=== PATIENT | female | born 1930 | race Hispanic/Latino ===

== ENCOUNTER 2018-01-22 16:48 | Inpatient (IN) | payer MEDICARE ==
--- NOTE | 2018-01-22 17:28 | ED PDOC ---
Arrival/HPI - General Chief Complaint: Shortness Of Breath Time Seen by Provider: 01/22/18 17:02 Historian: Patient - Critical Care Critical Care Minutes: 45 minutes Narrative Critical Care (Text): 01/22/18 17:05 Patient was immediately seen by PA at the bedside. Patient's HR was fluctuating in the 140s-170s, O2 sat fluctuating in 80s to low 90s on O2. Patient very agitated and uncooperative. Given ativan 1 mg IV immediately. Rectal temp 99.5. ER MD notified immediately of the case and patient was seen by ER MD. - History of Present Illness Narrative History of Present Illness (Text): 01/22/18 17:24 87 year old female, with a history of hypertension, dementia, TIA, gastric polyps, and hiatal hernia, presents to the emergency department for SOB and cough which started today. History is mostly obtained form the patient's daughter, who states that the patient lives alone with a naphthol soaping machine operator 30/10, she is mostly bed bound. States that yesterday the patient was well and symptoms started abruptly today. She also had an episode of vomiting with cough. Otherwise, as per daughter the patient has had decrease in appetite, has been without fever, diarrhea. She adds that the patient get easily agitated due to dementia. Unable to obtain further history as the patient has late stage dementia. PMD Pervemaxim Past Medical History - Infectious Disease Hx of Infectious Diseases: None - Tetanus Immunization Tetanus Immunization: Unknown - Cardiac Hx Cardiac Disorders: No Hx Hypertension: Yes Hx Pacemaker: No - Pulmonary Hx Respiratory Disorders: No - Neurological Hx Neurological Disorder: Yes Hx Dementia: Yes Hx Dizziness: Yes Hx Transient Ischemic Attacks (TIA): Yes (08-05-13) - HEENT Hx HEENT Disorder: No - Renal Hx Renal Disorder: No - Endocrine/Metabolic Hx Endocrine Disorders: No - Hematological/Oncological Hx Blood Disorders: No - Integumentary Hx Dermatological Disorder: No - Musculoskeletal/Rheumatological Hx Musculoskeletal Disorders: No Hx Falls: Yes Hx Unsteady Gait: Yes - Gastrointestinal Hx Gastrointestinal Disorders: Yes (GASTRIC POLYPS,HIATAL HERNIA,HEMORRHOIDS) HX Swallowing Problems: Yes (08-05-13) - Genitourinary/Gynecological Hx Genitourinary Disorders: Yes (URGENCY) - Psychiatric Hx Psychophysiologic Disorder: No Hx Depression: No Hx Emotional Abuse: No Hx Physical Abuse: No Hx Substance Use: No - Past Surgical History Past Surgical History: No Previous - Anesthesia Hx Anesthesia: Yes Hx Anesthesia Reactions: No Hx Malignant Hyperthermia: No - Suicidal Assessment Feels Threatened In Home Enviroment: No Family/Social History Family/Social History: Unknown Family HX Smoking Status: Never Smoked Hx Alcohol Use: Yes (OCCASSIONAL) Hx Substance Use: No Allergies/Home Meds Allergies/Adverse Reactions: Allergies No Known Allergies Allergy (Verified 06/13/16 02:35) Home Medications: Home Meds Medication Instructions Recorded Confirmed Pantoprazole [Protonix EC Tab] 1 tab PO DAILY 04/22/13 08/05/13 Megestrol [Megace] 40 mg PO BID 08/05/13 08/05/13 Vitamin D 50,000 50,000 iu PO TUE 08/05/13 08/05/13 Aspirin [Ecotrin] 06/13/16 06/13/16 Review of Systems - Review of Systems Systems not reviewed;Unavailable: Dementia Constitutional: absent: Fevers Respiratory: Cough Gastrointestinal: Vomiting. absent: Diarrhea Skin: absent: Rash, Skin Lesions Physical Exam Pulse: Tachycardic Appearance: Positive for: Other (pt is awake, not alert or oriented is agitated ) - Systems Exam Head: Present: Atraumatic, Normocephalic Pupils: Present: PERRL Extroacular Muscles: Present: EOMI Conjunctiva: Present: Normal Mouth: Present: Moist Mucous Membranes Neck: Present: Normal Range of Motion Respiratory/Chest: Present: Clear to Auscultation, Good Air Exchange, Rales (all throughout). No: Respiratory Distress, Accessory Muscle Use, Wheezes Cardiovascular: Present: Normal S1, S2, Irregular Rhythm, Tachycardic Abdomen: No: Tenderness, Distention, Peritoneal Signs Back: Present: Normal Inspection Upper Extremity: Present: Normal Inspection. No: Cyanosis, Edema Lower Extremity: Present: Normal Inspection. No: Edema Neurological: Present: GCS=15, CN II-XII Intact Skin: Present: Warm, Dry, Normal Color. No: Rashes Psychiatric: Present: Agitated Medical Decision Making ED Course and Treatment: 01/22/18 17:30 Previous medical records reviewed, patient's last visit was for stroke like symptoms in 06/2016, was Dx with TIA. 87 year old female, with a history of hypertension, dementia, TIA, gastric polyps, hiatal hernia, presents to the emergency department for cough and SOB x 1 day. DDx : CHF vs pneumonia Plan : - EKG - CXR - IV - Labs - Lasix 40 mg IV - Duoneb - VBG - UA - O2 - ativan 1 mg IV Case d/w ER MD immediately and he saw and examined the patient. EKG : ST at 148 bpm, w/ PVCs. CXR : +vascular markings, +infiltrates in the RLL, possible RML. Labs reviewed : wbc 10, hgb 11.9, trop (-), bnp 378, vbg ph 7.16, lactate 8, ua (-) Code sepsis called. Rocephin 1 g IV and zithromax 500 mg IV ordered. ABG ordered. ABG : ph 7.39, lactate 5.6 Patient still tachycardic in the 130s, less agitated, pulse ox still in 80s, respiratory called and bipap ordered. 19:00 Case d/w ICU attending Dr. Henry and agree with plan to admit and for the patient to stay in ICU for now until there is clinical improvement and the patient can downgrade to [facility]. Case d/w Dr. Martinez, agrees with plan to admit to the ICU. While on bipap the patient's HR improved to the 110s-120s and pulse ox is now 100%. Patient is calm and sleeping comfortably in bed. As per patient's daughter, she agrees with plan for admission to the ICU and states that she is the power of assistant prosecuting attorney and wishes for her mother to be DNR but not DNI. She states that she had this discussion with the ICU attending Dr. Henry and he is aware. - RAD Interpretation Radiology Orders: 01/22/18 17:18 CHEST PORTABLE [RAD] Stat - Medication Orders Current Medication Orders: Discontinued Medications Furosemide (Lasix) 40 mg IVP STAT STA Stop: 01/22/18 17:19 Lorazepam (Ativan) 1 mg IVP ONCE ONE; Protocol Stop: 01/22/18 17:22 - PA / RETAIL SERVICE REPRESENTATIVE / Resident Statement MD/DO has reviewed & agrees with the documentation as recorded. Disposition/Present on Arrival - Present on Arrival Any Indicators Present on Arrival: No History of DVT/PE: No History of Uncontrolled Diabetes: No Urinary Catheter: No History of Decub. Ulcer: No History Surgical Site Infection Following: None - Disposition Have Diagnosis and Disposition been Completed?: Yes Diagnosis: Pneumonia, Hypoxia Disposition: HOSPITALIZED Disposition Time: 18:00 Patient Plan: Admission Patient Problems: Current Active Problems Problem Status Onset Pneumonia Acute Hypoxia Acute Condition: FAIR
[2018-01-22 17:50] LABS: VENOUS BLOOD GAS BASE EXCESS -7.5 mmol/L (0.0-2.0); VENOUS BLOOD GAS PO2 34 mm/Hg (30-55)
[2018-01-22 17:54] LABS: VENOUS BLOOD PH 7.16 (7.32-7.43)
[2018-01-22 17:57] LABS: ALBUMIN 3.9 g/dL (3.0-4.8); ALT/SGPT 25 U/L (7-56); AST/SGOT 31 U/L (14-36); BLOOD UREA NITROGEN 17 mg/dL (7-21); CALCIUM 9.4 mg/dL (8.4-10.5); GFR NON-AFRICAN AMERICAN 52; INR 1.12; PARTIAL THROMBOPLASTIN TIME 30.5 Seconds (25.1-36.5); PROTHROMBIN TIME 12.8 SECONDS (9.4-12.5)
[2018-01-22 17:58] LABS: BASO # 0.02 K/mm3 (0.0-2.0); BASO % 0.2 % (0.0-3.0); GRAN # 8.59 (1.4-6.5); GRAN % 80.4 % (50.0-68.0); HEMOGLOBIN 11.9 g/dL (12.0-16.0); LYMPH # 1.7 (1.2-3.4); LYMPH % 15.7 % (22.0-35.0); MEAN CELL VOLUME 65.4 fl (80.0-105.0); MEAN CORPUSCULAR HEMOGLOBIN 20.5 pg (25.0-35.0); MEAN CORPUSCULAR HGB CONC 31.3 g/dl (31.0-37.0); MONO # 0.4 (0.1-0.6); MONO % 3.7 % (1.0-6.0); RBC 5.81 10^6/uL (3.5-6.1); RED CELL DISTRIBUTION WIDTH 16.9 % (11.5-14.5); WHITE BLOOD COUNT 10.7 10^3/ul (4.5-11.0)
[2018-01-22] MEDS ORDERED: cefTRIAXone 1 gm 1 GM/100 ML BAG IVPB STA (18:07)
[2018-01-22] MEDS ORDERED: Azithromycin 500MG/NS 250ml 500 MG/250 ML BAG IVPB STA (18:07)
[2018-01-22 18:09] LABS: B-TYPE NATRIURETIC PEPTIDE 378 pg/mL (0-450); TROPONIN I < 0.01 ng/mL
--- NOTE | 2018-01-22 18:15 | RAD ---
Date of service: 01/22/2018 HISTORY: Shortness of breath. COMPARISON: 06/13/2016 FINDINGS: LUNGS: Asymmetric multifocal and bilateral infiltrates right greater than left. PLEURA: No significant pleural effusion identified, no pneumothorax apparent. CARDIOVASCULAR: Normal size heart. OSSEOUS STRUCTURES: No significant abnormalities. VISUALIZED UPPER ABDOMEN: Normal. OTHER FINDINGS: None. IMPRESSION: Extensive infiltrates right greater than left. In addition to possible pneumonia, pulmonary edema should be considered. These are new findings compared to prior study
[2018-01-22 18:34] LABS: URINE BILIRUBIN NEGATIVE (NEGATIVE); URINE BLOOD NEGATIVE (NEGATIVE); URINE GLUCOSE (UA) NEGATIVE (NEGATIVE); URINE LEUKOCYTE ESTERASE NEGATIVE Leu/uL (NEGATIVE); URINE PROTEIN TRACE mg/dL (<30 mg/dL); URINE UROBILINOGEN 0.2 E.U./dL (<1 E.U./dL)
[2018-01-22 18:37] LABS: URINE APPEARANCE CLEAR (CLEAR); URINE COLOR YELLOW (YELLOW)
[2018-01-22 18:46] LABS: URINE EPITHELIAL CELLS 0 - 2 /hpf (0-5); URINE RBC NEGATIVE /hpf (0-2); URINE WBC NEGATIVE /hpf (0-6)
[2018-01-22 19:04] VITALS: BMI 22.8
[2018-01-22] MEDS ORDERED: Albuterol-Ipratrop 3 mg / 0.5 (3 ml) UD IH STA (19:05)
[2018-01-22 19:17] LABS: ARTERIAL BLOOD GAS HCO3 18.2 mmol/L (21-28); ARTERIAL BLOOD GAS O2 SAT 100.2 % (95-98); ARTERIAL BLOOD GAS PCO2 30 mm/Hg (35-45); ARTERIAL BLOOD GAS PH 7.39 (7.35-7.45); ARTERIAL BLOOD GAS TCO2 19.1 mmol.L (22-28)
[2018-01-22] MEDS ORDERED: Albuterol-Ipratrop 3 mg / 0.5 (3 ml) UD IH PRN (19:33)
[2018-01-22] MEDS ORDERED: Dextrose 5%/0.45% NS 1,000 ML IV SCH (19:45)
[2018-01-22] MEDS: Levalbuterol 1.25 MG/3 ML Inhal Soln UD IH SCH (20:00)
--- NOTE | 2018-01-22 20:25 | CP.PCM.CON ---
<aYhir Balbuena - Last Filed: 01/22/18 20:49> History of Present Illness - History of Present Illness History of Present Illness: PGY-2 ICU consult note for Dr Carl mcgraw: patient noted to have sob/cough by health aid Mrs Keenan is a 87 year old bed bound female with a PMHx of severe dementia, HLD, HTN, chronic vertigo, hx of CVA in 2013, hiatal hernia, gastric polyps, who according to special agent secret service and daughter was found to have increasing shortness of breath and cough which started 1 day ago. Patient lives alone with a 24/7 special agent secret service. Per daughter, patient was at her baseline 2 days ago and 1 day ago seemed "a bit off". Today the patient began having coughing spells and became short of breath. Her temperature was not checked at home. The daughter decided to bring the patient to the ER. PMHx: severe dementia, HLD, HTN, chronic vertigo, hx of TIA in 2013, hiatal hernia, gastric polyps PSHx: upper and lower endoscopy 2013 Allergies: NKA Home Meds: protonix 40mg po qd, atorvastatin 10mg po qd, risperidone 0.25mg po qd, quetiapine 50mg po qd SocialHx: no tobacco hx, previous occasional alcohol use, no hx of illicit drug use, lives alone with 24/7 special agent secret service FamHx: unknown Review of Systems - Review of Systems Systems not reviewed;Unavailable: Respiratory Distress, Dementia, Altered Mental Status Past Patient History - Infectious Disease Hx of Infectious Diseases: None - Tetanus Immunizations Tetanus Immunization: Unknown - Past Social History Smoking Status: Never Smoked - CARDIAC Hx Cardiac Disorders: No Hx Hypertension: Yes Hx Pacemaker: No - PULMONARY Hx Respiratory Disorders: No - NEUROLOGICAL Hx Neurological Disorder: Yes Hx Dementia: Yes Hx Dizziness: Yes Hx Transient Ischemic Attacks (TIA): Yes (08-05-13) - HEENT Hx HEENT Problems: No - RENAL Hx Chronic Kidney Disease: No - ENDOCRINE/METABOLIC Hx Endocrine Disorders: No - HEMATOLOGICAL/ONCOLOGICAL Hx Blood Disorders: No - INTEGUMENTARY Hx Dermatological Problems: No - MUSCULOSKELETAL/RHEUMATOLOGICAL Hx Musculoskeletal Disorders: No Hx Falls: Yes Hx Unsteady Gait: Yes - GASTROINTESTINAL Hx Gastrointestinal Disorders: Yes (GASTRIC POLYPS,HIATAL HERNIA,HEMORRHOIDS) HX Swallowing Problems: Yes (08-05-13) - GENITOURINARY/GYNECOLOGICAL Hx Genitourinary Disorders: Yes (URGENCY) - PSYCHIATRIC Hx Psychophysiologic Disorder: No Hx Depression: No Hx Emotional Abuse: No Hx Physical Abuse: No Hx Substance Use: No - SURGICAL HISTORY Hx Surgeries: No - ANESTHESIA Hx Anesthesia: Yes Hx Anesthesia Reactions: No Hx Malignant Hyperthermia: No Meds Allergies/Adverse Reactions: Allergies Allergy/AdvReac Type Severity Reaction Status Date / Time No Known Allergies Allergy Verified 06/13/16 02:35 - Medications Medications: Current Medications Albuterol/Ipratropium (Duoneb 3 Mg/0.5 Mg (3 Ml) Ud) 3 ml IH Q2H PRN PRN Reason: Shortness of Breath Furosemide (Lasix) 40 mg IVP DAILY [facility] Heparin Sodium (Porcine) (Heparin) 5,000 units SC Q8 JORJE; Protocol Dextrose/Sodium Chloride (Dextrose 5%/0.45% Ns 1000 Ml) 1,000 mls @ 50 mls/hr IV .Q20H JORJE Vancomycin HCl (Vancomycin 1gm) 1 gm in 250 mls @ 167 mls/hr IVPB Q12 JORJE; Protocol Cefepime HCl (Maxipime 1gm) 1 gm in 100 mls @ 25 mls/hr IVPB Q12 JOR[facility]; Protocol Ipratropium Devine (Atrovent) 0.5 mg IH [id number] JORJE Levalbuterol HCl (Xopenex) 1.25 mg IH [id number] JORJE Lorazepam (Ativan) 0.5 mg IVP STAT STA; Protocol Stop: 01/22/18 20:13 Methylprednisolone (Solu-Medrol) 40 mg IV Q12 JORJE Pantoprazole Sodium (Protonix Inj) 40 mg IVP DAILY [facility] Physical Exam - Constitutional Appears: In Acute Distress - Head Exam Head Exam: ATRAUMATIC, NORMAL INSPECTION - Eye Exam Eye Exam: PERRL. absent: Scleral icterus - ENT Exam ENT Exam: Mucous Membranes Dry - Neck Exam Neck exam: Positive for: Normal Inspection - Respiratory Exam Respiratory Exam: Clear to Auscultation Bilateral, Respiratory Distress. ab sent: Rales, Rhonchi, Wheezes - Cardiovascular Exam Cardiovascular Exam: Tachycardia, REGULAR RHYTHM, +S1, +S2, Systolic Murmur. absent: JVD - GI/Abdominal Exam GI & Abdominal Exam: Normal Bowel Sounds, Soft. absent: Distended, Firm, Hernia, Tenderness - Extremities Exam Extremities exam: Positive for: normal capillary refill, normal inspection, pedal pulses present. Negative for: pedal edema - Neurological Exam Neurological exam: Altered Additional comments: severely demented patient unable to follow commands, responsive to painful stimuli - Skin Skin Exam: Dry, Normal Color, Warm Additional comments: no pressure ulcers noted in lumbar, posterior legs or gluteal region Results - Vital Signs Recent Vital Signs: Last Vital Signs Temp 99.5 F 01/22/18 16:50 Pulse 135 H 01/22/18 18:41 Resp 17 01/22/18 18:40 BP 113/63 01/22/18 18:41 Pulse Ox 92 L 01/22/18 18:40 - Labs Result Diagrams: 01/22/18 16:18 01/22/18 16:18 Labs: Laboratory Results - last 24 hr 01/22/18 01/22/18 01/22/18 16:18 16:18 16:18 WBC 10.7 D RBC 5.81 Hgb 11.9 L Hct 38.0 MCV 65.4 L MCH 20.5 L MCHC 31.3 RDW 16.9 H Plt Count 353 MPV 10.0 Gran % 80.4 H Lymph % (Auto) 15.7 L Reynolds % (Auto) 3.7 Eos % (Auto) 0.0 L Baso % (Auto) 0.2 Gran # 8.59 H Lymph # (Auto) 1.7 Reynolds # (Auto) 0.4 Eos # (Auto) 0.0 Baso # (Auto) 0.02 PT 12.8 H INR 1.12 APTT 30.5 pCO2 pO2 34 HCO3 ABG pH ABG Total CO2 ABG O2 Saturation ABG Base Excess ABG Potassium VBG pH 7.16 L* VBG pCO2 62.0 H VBG HCO3 22.1 VBG Total CO2 24.0 VBG O2 Sat (Calc) 50.8 VBG Base Excess -7.5 L VBG Potassium 4.1 Sodium 141.0 Chloride 103.0 Glucose 236 H Lactate 8.0 H* FiO2 21.0 Inspiratory BiPAP Potassium Carbon Dioxide Anion Gap BUN Creatinine Est GFR ( Amer) Est GFR (Non-Af Amer) Random Glucose Calcium Magnesium Total Bilirubin AST ALT Alkaline Phosphatase Lactate Dehydrogenase Total Creatine Kinase Troponin I NT-Pro-B Natriuret Pep Total Protein Albumin Globulin Albumin/Globulin Ratio Arterial Blood Potassium Venous Blood Potassium 4.1 Urine Color Urine Appearance Urine pH Ur Specific [place] Urine Protein Urine Glucose (UA) Urine Ketones Urine Blood Urine Nitrate Urine Bilirubin Urine Urobilinogen Ur Leukocyte Esterase Urine RBC Urine WBC Ur Epithelial Cells 01/22/18 01/22/18 01/22/18 16:18 18:21 19:12 WBC RBC Hgb Hct MCV MCH MCHC RDW Plt Count MPV Gran % Lymph % (Auto) Reynolds % (Auto) Eos % (Auto) Baso % (Auto) Gran # Lymph # (Auto) Reynolds # (Auto) Eos # (Auto) Baso # (Auto) PT INR APTT pCO2 30 L pO2 329.0 H HCO3 18.2 L ABG pH 7.39 ABG Total CO2 19.1 L ABG O2 Saturation 100.2 H ABG Base Excess -5.6 L ABG Potassium 3.7 VBG pH VBG pCO2 VBG HCO3 VBG Total CO2 VBG O2 Sat (Calc) VBG Base Excess VBG Potassium Sodium 140 139.0 Chloride 103 108.0 H Glucose 179 H Lactate 5.6 H* FiO2 100.0 Inspiratory BiPAP 12 Potassium 4.0 Carbon Dioxide 19 L Anion Gap 22 H BUN 17 Creatinine 1.0 Est GFR ( Amer) > 60 Est GFR (Non-Af Amer) 52 Random Glucose 221 H Calcium 9.4 Magnesium 1.6 L Total Bilirubin 0.6 AST 31 ALT 25 Alkaline Phosphatase 117 Lactate Dehydrogenase 397 Total Creatine Kinase 30 L Troponin I < 0.01 NT-Pro-B Natriuret Pep 378 Total Protein 7.8 Albumin 3.9 Globulin 3.8 Albumin/Globulin Ratio 1.0 L Arterial Blood Potassium 3.7 Venous Blood Potassium Urine Color Yellow Urine Appearance Clear Urine pH 6.0 Ur Specific [place] 1.025 Urine Protein Trace H Urine Glucose (UA) Negative Urine Ketones Negative Urine Blood Negative Urine Nitrate Negative Urine Bilirubin Negative Urine Urobilinogen 0.2 Ur Leukocyte Esterase Negative Urine RBC Negative Urine WBC Negative Ur Epithelial Cells 0 - 2 Assessment & Plan - Assessment and Plan (Free Text) Plan: Mrs Keenan is a 87 year old bed bound female with a PMHx of severe dementia, HLD, HTN, chronic vertigo, hx of CVA in 2013, hiatal hernia, gastric polyps, who according to special agent secret service and daughter was found to have increasing shortness of breath and cough which started 1 day prior to arrival: Pulmonary: Acute Respiratory Acidosis 2/2 Pneumonia -cxr shows extensive infiltrates right greater than left, in addition to possible pneumonia, pulmonary edema should be considered -currently on bipap at 100% fiO2 with PEEP of 12 - continue bipap for now - saturating well at 92% -initial abd showed acute respiratory acidosis, repeat abg shows normal pH, f/u abd in am -patient is protecting airway -f/u d-dimer -f/u blood cx, urine cx -cefepime 1g ivpb q12h, vancomycin 1g ivpb q12h -ipratropium 0.5mg ih q6h, levalbuterol 1.25mg ih q6h -methyprednisolone 40mg ivp q12h -furosemide 40mg ivp qd -consult ID, Dr Masters Cardiovascular: Sinus tachycardia, hx of right carotid stenosis 60-80%, HTN, HLD, prolonged Qt at 550 -probnp normal, trop negative -ekg showed t wave inversion in inferior leads and prolonged qt at 550 other sinus tach at 130 beats per minute -try ativan 0.5mg ivp once to control tachycardia - if still tachy will start metoprolol tartrate 5mg ivp q6h with holding parameters -repeat ekg in am -echo -hold qt prolonging drugs Neuro: hx of remote right MCA territory infarction, severe dementia, bed bound -npo except meds until swallow eval * d5 in half NS given she is npo at 50cc/hr -reposition every 2 hours -multipodus boots Endocrine: elevated glucose - previous A1c 6.7 -f/u A1c -accuchecks q6h with riss Hematology: anemia -hgb 11.9 on admission which is stable from previous admission -f/u iron studies GI: Hx of hiatal hernia and gastric polyps -protonix 40mg ivp qd PPX -heparin 5000u sc q8h -protonix 40mg ivp qd Code Status: DNR only as per daughter who is POA <Trish Henry - Last Filed: 01/23/18 06:40> Meds - Medications Medications: Current Medications Dextrose (Dextrose 50% Inj) 0 ml IV STAT PRN; Protocol PRN Reason: Hypoglycemia Protocol Furosemide (Lasix) 40 mg IVP DAILY [facility]OR[facility] Heparin Sodium (Porcine) (Heparin) 5,000 units SC Q8 JORJE; Protocol Last Admin: 01/23/18 00:09 Dose: 5,000 units Vancomycin HCl (Vancomycin 1gm) 1 gm in 250 mls @ 167 mls/hr IVPB Q12 JORJE; Protocol Last Admin: 01/23/18 00:10 Dose: 167 mls/hr Cefepime HCl (Maxipime 1gm) 1 gm in 100 mls @ 25 mls/hr IVPB Q12 JORJE; Protocol Last Admin: 01/23/18 00:09 Dose: 25 mls/hr Dextrose (Dextrose 5% In Water 1000 Ml) 1,000 mls @ 0 mls/hr IV .Q0M PRN; Protocol PRN Reason: Hypoglycemia Protocol Dextrose/Sodium Chloride (Dextrose 5%/0.9% Ns 1000 Ml) 1,000 mls @ 50 mls/hr IV .Q20H JORJE Last Admin: 01/23/18 01:09 Dose: 50 mls/hr Insulin Human Lispro (Humalog Med) 0 units SC Q6H JORJE; Protocol Last Admin: 01/23/18 02:00 Dose: Not Given Ipratropium Devine (Atrovent) 0.5 mg IH [id number] [facility] Last Admin: 01/23/18 02:27 Dose: 0.5 mg Levalbuterol HCl (Xopenex) 1.25 mg IH [id number] [facility] Last Admin: 01/23/18 02:28 Dose: 1.25 mg Methylprednisolone (Solu-Medrol) 40 mg IV Q12 [facility] Last Admin: 01/23/18 00:09 Dose: 40 mg Pantoprazole Sodium (Protonix Inj) 40 mg IVP DAILY [facility] Results - Vital Signs Recent Vital Signs: Last Vital Signs Temp 99.6 F 01/23/18 00:02 Pulse 86 01/23/18 04:58 Resp 25 H 01/23/18 01:54 BP 102/65 01/23/18 01:54 Pulse Ox 83 L 01/23/18 01:54 - Labs Result Diagrams: 01/22/18 16:18 01/22/18 16:18 Labs: Laboratory Results - last 24 hr 01/22/18 01/22/18 01/22/18 16:18 16:18 16:18 WBC 10.7 D RBC 5.81 Hgb 11.9 L Hct 38.0 MCV 65.4 L MCH 20.5 L MCHC 31.3 RDW 16.9 H Plt Count 353 MPV 10.0 Gran % 80.4 H Lymph % (Auto) 15.7 L Reynolds % (Auto) 3.7 Eos % (Auto) 0.0 L Baso % (Auto) 0.2 Gran # 8.59 H Lymph # (Auto) 1.7 Reynolds # (Auto) 0.4 Eos # (Auto) 0.0 Baso # (Auto) 0.02 PT 12.8 H INR 1.12 APTT 30.5 D-Dimer, Quantitative pCO2 pO2 34 HCO3 ABG pH ABG Total CO2 ABG O2 Saturation ABG Base Excess ABG Potassium VBG pH 7.16 L* VBG pCO2 62.0 H VBG HCO3 22.1 VBG Total CO2 24.0 VBG O2 Sat (Calc) 50.8 VBG Base Excess -7.5 L VBG Potassium 4.1 Sodium 141.0 Chloride 103.0 Glucose 236 H Lactate 8.0 H* FiO2 21.0 Inspiratory BiPAP Potassium Carbon Dioxide Anion Gap BUN Creatinine Est GFR ( Amer) Est GFR (Non-Af Amer) Random Glucose Calcium Magnesium Iron TIBC % Saturation Total Bilirubin AST ALT Alkaline Phosphatase Lactate Dehydrogenase Total Creatine Kinase Troponin I NT-Pro-B Natriuret Pep Total Protein Albumin Globulin Albumin/Globulin Ratio Arterial Blood Potassium Venous Blood Potassium 4.1 Urine Color Urine Appearance Urine pH Ur Specific [place] Urine Protein Urine Glucose (UA) Urine Ketones Urine Blood Urine Nitrate Urine Bilirubin Urine Urobilinogen Ur Leukocyte Esterase Urine RBC Urine WBC Ur Epithelial Cells 01/22/18 01/22/18 01/22/18 16:18 16:30 18:21 WBC RBC Hgb Hct MCV MCH MCHC RDW Plt Count MPV Gran % Lymph % (Auto) Reynolds % (Auto) Eos % (Auto) Baso % (Auto) Gran # Lymph # (Auto) Reynolds # (Auto) Eos # (Auto) Baso # (Auto) PT INR APTT D-Dimer, Quantitative pCO2 pO2 HCO3 ABG pH ABG Total CO2 ABG O2 Saturation ABG Base Excess ABG Potassium VBG pH VBG pCO2 VBG HCO3 VBG Total CO2 VBG O2 Sat (Calc) VBG Base Excess VBG Potassium Sodium 140 Chloride 103 Glucose Lactate FiO2 Inspiratory BiPAP Potassium 4.0 Carbon Dioxide 19 L Anion Gap 22 H BUN 17 Creatinine 1.0 Est GFR ( Amer) > 60 Est GFR (Non-Af Amer) 52 Random Glucose 221 H Calcium 9.4 Magnesium 1.6 L Iron 24 L TIBC 271 % Saturation 9 L Total Bilirubin 0.6 AST 31 ALT 25 Alkaline Phosphatase 117 Lactate Dehydrogenase 397 Total Creatine Kinase 30 L Troponin I < 0.01 NT-Pro-B Natriuret Pep 378 Total Protein 7.8 Albumin 3.9 Globulin 3.8 Albumin/Globulin Ratio 1.0 L Arterial Blood Potassium Venous Blood Potassium Urine Color Yellow Urine Appearance Clear Urine pH 6.0 Ur Specific [place] 1.025 Urine Protein Trace H Urine Glucose (UA) Negative Urine Ketones Negative Urine Blood Negative Urine Nitrate Negative Urine Bilirubin Negative Urine Urobilinogen 0.2 Ur Leukocyte Esterase Negative Urine RBC Negative Urine WBC Negative Ur Epithelial Cells 0 - 2 01/22/18 01/22/18 01/22/18 19:12 21:25 21:25 WBC RBC Hgb Hct MCV MCH MCHC RDW Plt Count MPV Gran % Lymph % (Auto) Reynolds % (Auto) Eos % (Auto) Baso % (Auto) Gran # Lymph # (Auto) Reynolds # (Auto) Eos # (Auto) Baso # (Auto) PT INR APTT D-Dimer, Quantitative 629 H pCO2 30 L pO2 329.0 H HCO3 18.2 L ABG pH 7.39 ABG Total CO2 19.1 L ABG O2 Saturation 100.2 H ABG Base Excess -5.6 L ABG Potassium 3.7 VBG pH VBG pCO2 VBG HCO3 VBG Total CO2 VBG O2 Sat (Calc) VBG Base Excess VBG Potassium Sodium 139.0 Chloride 108.0 H Glucose 179 H Lactate 5.6 H* FiO2 100.0 Inspiratory BiPAP 12 Potassium Carbon Dioxide Anion Gap BUN Creatinine Est GFR ( Amer) Est GFR (Non-Af Amer) Random Glucose Calcium Magnesium Iron TIBC % Saturation Total Bilirubin AST ALT Alkaline Phosphatase Lactate Dehydrogenase Total Creatine Kinase Troponin I 0.01 NT-Pro-B Natriuret Pep Total Protein Albumin Globulin Albumin/Globulin Ratio Arterial Blood Potassium 3.7 Venous Blood Potassium Urine Color Urine Appearance Urine pH Ur Specific [place] Urine Protein Urine Glucose (UA) Urine Ketones Urine Blood Urine Nitrate Urine Bilirubin Urine Urobilinogen Ur Leukocyte Esterase Urine RBC Urine WBC Ur Epithelial Cells 01/22/18 01/23/1801/23/18 23:07 02:40 05:35 WBC RBC Hgb Hct MCV MCH MCHC RDW Plt Count MPV Gran % Lymph % (Auto) Reynolds % (Auto) Eos % (Auto) Baso % (Auto) Gran # Lymph # (Auto) Reynolds # (Auto) Eos # (Auto) Baso # (Auto) PT INR APTT D-Dimer, Quantitative pCO2 31 L pO2 33 39 189.0 H HCO3 21.1 ABG pH 7.44 ABG Total CO2 22.1 ABG O2 Saturation 99.9 H ABG Base Excess -2.1 L ABG Potassium 4.2 VBG pH 7.27 L 7.27 L VBG pCO2 46.0 47.0 VBG HCO3 21.1 21.6 VBG Total CO2 22.5 23.0 VBG O2 Sat (Calc) 57.6 69.8 H VBG Base Excess -5.9 L -5.4 L VBG Potassium 3.9 4.6 Sodium 139.0 140.0 140.0 Chloride 106.0 107.0 113.0 H Glucose 189 H 168 H 155 H Lactate 6.8 H* 6.5 H* 2.9 H FiO2 21.0 21.0 60.0 Inspiratory BiPAP Potassium Carbon Dioxide Anion Gap BUN Creatinine Est GFR ( Amer) Est GFR (Non-Af Amer) Random Glucose Calcium Magnesium Iron TIBC % Saturation Total Bilirubin AST ALT Alkaline Phosphatase Lactate Dehydrogenase Total Creatine Kinase Troponin I NT-Pro-B Natriuret Pep Total Protein Albumin Globulin Albumin/Globulin Ratio Arterial Blood Potassium 4.2 Venous Blood Potassium 3.9 4.6 Urine Color Urine Appearance Urine pH Ur Specific [place] Urine Protein Urine Glucose (UA) Urine Ketones Urine Blood Urine Nitrate Urine Bilirubin Urine Urobilinogen Ur Leukocyte Esterase Urine RBC Urine WBC Ur Epithelial Cells Attending/Attestation - Attestation I have personally seen and examined this patient.: Yes I have fully participated in the care of the patient.: Yes I have reviewed all pertinent clinical information: Yes
[2018-01-22] MEDS ORDERED: Magnesium Sulfate 2 gm/50 ml 2 GM/50 ML BAG IVPB ONE (20:37)
[2018-01-22 20:56] LABS: IRON 24 ug/dL (45-180)
[2018-01-22] MEDS ORDERED: Dextrose 50% SYRINGE Inj (50 ml) IV PRN (20:56)
[2018-01-22 21:06] LABS: % IRON SATURATION 9 % (20-55); TOTAL IRON BINDING CAPACITY 271 ug/dL (265-497)
[2018-01-22] MEDS: Insulin Lispro (humaLOG) MEDIUM Coverage SC SCH (21:40)
[2018-01-22] MEDS ORDERED: Cefepime 1gm in NS 100ml 1 GM/100 ML BAG IVPB SCH (22:00)
[2018-01-22] MEDS ORDERED: Vancomycin 1gm in NS 250ml 1 GM/250 ML BAG IVPB SCH (22:00)
[2018-01-22 23:11] LABS: VENOUS BLOOD GAS BASE EXCESS -5.9 mmol/L (0.0-2.0); VENOUS BLOOD GAS PO2 33 mm/Hg (30-55); VENOUS BLOOD PH 7.27 (7.32-7.43)
--- NOTE | 2018-01-22 23:17 | CARD ---
APPROVED REPORT Date of service: 01/22/2018 EKG Measurement Heart [id number] <Conclusion> Sinus tachycardia with premature supraventricular complexes Inferior infarct, age undetermined Abnormal ECG
[2018-01-23] MEDS: MethylPREDNISolone 40 mg Vial IV SCH ×3 (00:09→22:41)
--- NOTE | 2018-01-23 00:44 | PCM.SEPTIC ---
<Neal Fleming - Last Filed: 01/23/18 00:56> Sepsis Progress Note - Reassessment Type Date of Evaluation: 01/23/18 Time of Evaluation: 00:44 Reassessment Type: Non-invasive reassessment - Non Invasive Reassessment Were the most recent vital sign reviewed: Yes Vital Sign (Latest): Temp Pulse Resp BP Pulse Ox 99.5 F 99 H 18 95/61 L 99 01/22/18 16:50 01/22/18 21:45 01/22/18 21:45 01/22/18 21:45 01/22/18 21:45 Cardiovascular: Yes: Regular Rate, Rhythm, Tachycardia Respiratory: Yes: Decreased Breath Sounds, Wheezing, Other (on BIPAP). No: Accessory Muscle Use Capillary Refill: Normal (Less than 2 sec) Skin: Warm, Dry, Pale <Trish Henry - Last Filed: 01/23/18 06:41> Sepsis Progress Note - Non Invasive Reassessment Vital Sign (Latest): Temp Pulse Resp BP Pulse Ox 99.6 F 86 25 H 102/65 83 L 01/23/18 00:02 01/23/18 04:58 01/23/18 01:54 01/23/18 01:54 01/23/18 01:54 Attending/Attestation - Attestation I have personally seen and examined this patient.: Yes I have fully participated in the care of the patient.: Yes I have reviewed all pertinent clinical information, including history, physical exam and plan: Yes
[2018-01-23] MEDS ORDERED: Dextrose 5%/0.9% NS 1,000 ML IV SCH (00:45)
[2018-01-23] MEDS: Insulin Lispro (humaLOG) MEDIUM Coverage SC SCH (02:00)
[2018-01-23] MEDS: Ipratropium 0.02% Inhal Soln (0.5 mg/2.5 ml) UD IH SCH ×2 (02:27→20:19)
[2018-01-23] MEDS: Levalbuterol 1.25 MG/3 ML Inhal Soln UD IH SCH ×2 (02:28→20:18)
[2018-01-23 03:02] LABS: VENOUS BLOOD GAS BASE EXCESS -5.4 mmol/L (0.0-2.0); VENOUS BLOOD GAS PO2 39 mm/Hg (30-55); VENOUS BLOOD PH 7.27 (7.32-7.43)
[2018-01-23 05:50] LABS: ARTERIAL BLOOD GAS HCO3 21.1 mmol/L (21-28); ARTERIAL BLOOD GAS O2 SAT 99.9 % (95-98); ARTERIAL BLOOD GAS PCO2 31 mm/Hg (35-45); ARTERIAL BLOOD GAS PH 7.44 (7.35-7.45); ARTERIAL BLOOD GAS TCO2 22.1 mmol.L (22-28)
[2018-01-23 06:49] LABS: BASO # 0.01 K/mm3 (0.0-2.0); GRAN # 18.39 (1.4-6.5); GRAN % 89.3 % (50.0-68.0); LYMPH # 1.3 (1.2-3.4); LYMPH % 6.4 % (22.0-35.0); MEAN CELL VOLUME 64.1 fl (80.0-105.0); MEAN CORPUSCULAR HEMOGLOBIN 20.8 pg (25.0-35.0); MEAN CORPUSCULAR HGB CONC 32.4 g/dl (31.0-37.0); MEAN PLATELET VOLUME 9.7 fl (7.0-11.0); MONO # 0.9 (0.1-0.6); MONO % 4.3 % (1.0-6.0); RBC 4.43 10^6/uL (3.5-6.1); RED CELL DISTRIBUTION WIDTH 16.4 % (11.5-14.5); WHITE BLOOD COUNT 20.6 10^3/ul (4.5-11.0)
[2018-01-23 06:51] LABS: HEMOGLOBIN 9.2 g/dL (12.0-16.0)
[2018-01-23] MEDS ORDERED: Heparin25000 units/250ml 1/2NS 25,000 UNITS/250 ML BAG IV SCH (07:00)
--- NOTE | 2018-01-23 07:09 | HP ---
HISTORY OF PRESENT ILLNESS: The patient is 87 years old, known to me, was seen a month ago at her house, was doing well. According to daughter, she was okay up until last night, but this morning she started to have cough, congestion that got increasingly worsened, found to have rattling in the chest when she came to visit her this afternoon. So she called ambulance and she was brought to emergency room. There is no history of fever, no nausea, no chance of aspiration according to patient's daughter. She has hospital bed and keep her head up all the time. PAST MEDICAL HISTORY: Significant for; 1. Severe dementia. 2. Swallowing difficulty. 3. Hypertension. 4. History of delusion. 5. History of chronic vertigo. ALLERGIES: SHE IS NOT ALLERGIC TO ANY MEDICATIONS. MEDICATIONS: At home, she is on aspirin 81 daily, Protonix 40 daily, she is on Risperdal 0.25 in the morning and 0.5 at bedtime. 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 PHYSICAL EXAMINATION: GENERAL: Patient has mild shortness of breath, confused and disoriented. VITAL SIGNS: She is afebrile, pulse 135, respirations 17, blood pressure 113/63. LUNGS: Bilateral soft rhonchi in upper lung region. HEART: S1, S2 audible. ABDOMEN: Soft, nontender. No rebound. No guarding. NEUROLOGICAL: Patient is confused and disoriented. EXTREMITIES: Bilateral legs, no edema. LABORATORY EXAM: WBC 7.7, hemoglobin 9.9, hematocrit 38, platelet 353. PT 12.8, INR 1.12. Her pH is 7.16, pCO2 is 62, bicarb is 22. Glucose is 236. Lactate is 8. Chemistry: Sodium 140, potassium 4, chloride 103, CO2 of 19, anion gap is 22, BUN 17, creatinine 1. Blood sugar of 221. Magnesium is 1.6. Urinalysis is unremarkable. X-ray of chest shows extensive infiltrate, right greater than the left in addition to possible pneumonia and pulmonary edema. ASSESSMENT: 1. Probably aspiration pneumonia. 2. History of hypertension. 3. Gastritis. 4. Severe dementia. 5. Debility and deconditioning. PLAN: I discussed with patient's daughter, if she is not ready for DNR, she look for mom's living will. For now, she want noninvasive intubation that is BiPAP and I will start. We will send blood culture and urine culture. Start her on IV antibiotic, nebulizer treatment. ID consult by Dr. Edwards and patient will be admitted in ICU. Nimco Martinez MD
[2018-01-23 07:11] LABS: ALBUMIN 3.3 g/dL (3.0-4.8)
--- NOTE | 2018-01-23 08:21 | CP.CCUPN ---
<David Hernandes - Last Filed: 01/23/18 09:48> CCU Subjective - Physician Review Subjective (Free Text): David Hernandes DO, PGY-1 ICU Progress Note for Dr. Carter Patient was seen and examined at bedside this AM. Grimaces with painful stimuli and opens eyes spontaneously but is non-verbal. Per prior records, patient has baseline dementia and 24 hour caregiver. CCU Objective - Vital Signs / Intake & Output Vital Signs (Last 4 hours): Vital Signs Pulse 01/23/18 04:58 86 01/23/18 04:22 99 H Intake and Output (Last 8hrs): Intake & Output 01/22/18 01/23/18 01/23/18 22:59 06:59 14:59 Intake Total 750 Output Total 50 Balance 700 Weight 125 lb 113 lb 3.2 oz Intake: IV 750 Left Hand 750 Output: Urine 50 Urethral (Saez) 50 Other: Voiding Method Indwelling Catheter # Bowel Movements 1 - Physical Exam Head: Positive for: Atraumatic, Normocephalic Pupils: Positive for: PERRL Extroacular Muscles: Positive for: EOMI Conjunctiva: Positive for: Other (pale) Mouth: Positive for: Moist Mucous Membranes Neck: Positive for: Normal Range of Motion Respiratory/Chest: Positive for: Rales (diffuse rales R > L). Negative for: Respiratory Distress, Accessory Muscle Use, Wheezes, Rhonchi, Tachypneic Cardiovascular: Positive for: Regular Rate and Rhythm, Normal S1, S2. Negative for: Murmurs, Rub, Gallop Abdomen: Positive for: Normal Bowel Sounds. Negative for: Distention Upper Extremity: Positive for: Normal Inspection. Negative for: Cyanosis, Edema Lower Extremity: Positive for: Normal Inspection. Negative for: Edema Neurological: Positive for: Motor Func Grossly Intact Skin: Positive for: Warm, Dry, Normal Color. Negative for: Rashes Psychiatric: Positive for: Other (non-verbal but opens eyes, grimaces with pain) - Medications Active Medications: Active Medications Generic Name Dose Route Start Last Admin Trade Name Freq PRN Reason Stop Dose Admin Dextrose 0 ml 01/22/18 20:56 Dextrose 50% Inj IV STAT PRN Hypoglycemia Protocol Protocol Furosemide 40 mg 01/23/18 10:00 Lasix IVP DAILY JORJE Heparin Sodium (Porcine) 5,000 units 01/22/18 22:00 01/23/18 07:07 Heparin SC Not Given Q8 JORJE Protocol Dextrose 1,000 mls @ 0 mls/hr 01/22/18 20:56 Dextrose 5% In Water 1000 Ml IV .Q0M PRN Hypoglycemia Protocol Protocol Per Protocol Dextrose/Sodium Chloride 1,000 mls @ 50 mls/hr 01/23/18 00:45 01/23/18 01:09 Dextrose 5%/0.9% Ns 1000 Ml IV 50 mls/hr .Q20H JORJE Administration Doxycycline Hyclate 100 mg/ 100 mls @ 100 mls/hr 01/23/18 10:00 Sodium Chloride IVPB Q12 JORJE Protocol Ceftriaxone Sodium 1 gm in 100 mls @ 100 mls/hr 01/23/18 10:00 Rocephin 1 Gram Ivpb IVPB DAILY JORJE Protocol Insulin Human Lispro 0 units 01/22/18 21:00 01/23/18 02:00 Humalog Med SC Not Given Q6H JORJE Protocol Ipratropium [place] 0.5 mg 01/23/18 02:00 01/23/18 02:27 Atrovent IH 0.5 mg [id number] JORJE Administration Levalbuterol HCl 1.25 mg 01/22/18 20:00 01/23/18 02:28 Xopenex IH 1.25 mg [id number] JOREJ Administration Methylprednisolone 40 mg 01/22/18 22:00 01/23/18 00:09 Solu-Medrol IV 40 mg Q12 JORJE Administration Pantoprazole Sodium 40 mg 01/23/18 10:00 Protonix Inj IVP DAILY JORJE - Patient Studies Lab Studies: Lab Studies 01/23/18 01/23/18 01/23/18 Range/Units 06:20 06:20 05:35 WBC 20.6 H D (4.5-11.0) 10^3/ul RBC 4.43 (3.5-6.1) 10^6/uL Hgb 9.2 L D (12.0-16.0) g/dL Hct 28.4 L (36.0-48.0) % MCV 64.1 L (80.0-105.0) fl MCH 20.8 L (25.0-35.0) pg MCHC 32.4 (31.0-37.0) g/dl RDW 16.4 H (11.5-14.5) % Plt Count 229 (120.0-450.0) 10^3/uL MPV 9.7 (7.0-11.0) fl Gran % 89.3 H (50.0-68.0) % Lymph % (Auto) 6.4 L (22.0-35.0) % [place] % (Auto) 4.3 (1.0-6.0) % Eos % (Auto) 0.0 L (1.5-5.0) % Baso % (Auto) 0.0 (0.0-3.0) % Gran # 18.39 H (1.4-6.5) Lymph # (Auto) 1.3 (1.2-3.4) [place] # (Auto) 0.9 H (0.1-0.6) Eos # (Auto) 0.0 (0.0-0.7) Baso # (Auto) 0.01 (0.0-2.0) K/mm3 PT (9.4-12.5) SECONDS INR APTT (25.1-36.5) Seconds D-Dimer, Quantitative (0-243) ng/mlDDU pCO2 31 L (35-45) mm/Hg pO2 189.0 H (30-55) mm/Hg HCO3 21.1 (21-28) mmol/L ABG pH 7.44 (7.35-7.45) ABG Total CO2 22.1 (22-28) mmol.L ABG O2 Saturation 99.9 H (95-98) % ABG Base Excess -2.1 L (-2.0-3.0) mmol/L ABG Potassium 4.2 (3.6-5.2) mmol/L VBG pH (7.32-7.43) VBG pCO2 (40-60) VBG HCO3 (21-28) mmol/l VBG Total CO2 (22-28) mmol.L VBG O2 Sat (Calc) (40-65) % VBG Base Excess (0.0-2.0) mmol/L VBG Potassium (3.6-5.2) mmol/L Sodium 140 140.0 (132-148) mmol/L Chloride 108 H 113.0 H (98-107) mmol/L Glucose 155 H (65-105) mg/dl Lactate 2.9 H (0.7-2.1) mmol/L FiO2 60.0 % Inspiratory BiPAP Potassium 4.9 (3.6-5.0) mmol/L Carbon Dioxide 22 (21-33) mmol/L Anion Gap 15 (10-20) BUN 27 H (7-21) mg/dL Creatinine 1.3 H (0.7-1.2) mg/dl Est GFR ( Amer) 47 Est GFR (Non-Af Amer) 39 Random Glucose 157 H (70-110) mg/dL Calcium 9.0 (8.4-10.5) mg/dL Phosphorus 3.3 (2.5-4.5) mg/dL Magnesium 2.2 (1.7-2.2) mg/dL Iron (45-180) ug/dL TIBC (265-497) ug/dL % Saturation (20-55) % Total Bilirubin 0.4 (0.2-1.3) mg/dL AST 25 (14-36) U/L ALT 26 (7-56) U/L Alkaline Phosphatase 69 (38-126) U/L Lactate Dehydrogenase (333-699) U/L Total Creatine Kinase (35-230) U/L Troponin I ng/mL NT-Pro-B Natriuret Pep (0-450) pg/mL Total Protein 6.5 (5.8-8.3) g/dL Albumin 3.3 (3.0-4.8) g/dL Globulin 3.2 gm/dL Albumin/Globulin Ratio 1.0 L (1.1-1.8) Arterial Blood Potassium 4.2 (3.6-5.2) mmol/L Venous Blood Potassium (3.6-5.2) mmol/L Urine Color (YELLOW) Urine Appearance (CLEAR) Urine pH (4.7-8.0) Ur Specific [place] (1.005-1.035) Urine Protein (<30 mg/dL) mg/dL Urine Glucose (UA) (NEGATIVE) mg/dL Urine Ketones (NEGATIVE) mg/dL Urine Blood (NEGATIVE) Urine Nitrate (NEGATIVE) Urine Bilirubin (NEGATIVE) Urine Urobilinogen (<1 E.U./dL) E.U./dL Ur Leukocyte Esterase (NEGATIVE) Marsha/uL Urine RBC (0-2) /hpf Urine WBC (0-6) /hpf Ur Epithelial Cells (0-5) /hpf 01/23/18 01/22/18 01/22/18 Range/Units 02:40 23:07 21:25 WBC (4.5-11.0) 10^3/ul RBC (3.5-6.1) 10^6/uL Hgb (12.0-16.0) g/dL Hct (36.0-48.0) % MCV (80.0-105.0) fl MCH (25.0-35.0) pg MCHC (31.0-37.0) g/dl RDW (11.5-14.5) % Plt Count (120.0-450.0) 10^3/uL MPV (7.0-11.0) fl Gran % (50.0-68.0) % Lymph % (Auto) (22.0-35.0) % [place] % (Auto) (1.0-6.0) % Eos % (Auto) (1.5-5.0) % Baso % (Auto) (0.0-3.0) % Gran # (1.4-6.5) Lymph # (Auto) (1.2-3.4) [place] # (Auto) (0.1-0.6) Eos # (Auto) (0.0-0.7) Baso # (Auto) (0.0-2.0) K/mm3 PT (9.4-12.5) SECONDS INR APTT (25.1-36.5) Seconds D-Dimer, Quantitative 629 H (0-243) ng/mlDDU pCO2 (35-45) mm/Hg pO2 39 33 (30-55) mm/Hg HCO3 (21-28) mmol/L ABG pH (7.35-7.45) ABG Total CO2 (22-28) mmol.L ABG O2 Saturation (95-98) % ABG Base Excess (-2.0-3.0) mmol/L ABG Potassium (3.6-5.2) mmol/L VBG pH 7.27 L 7.27 L (7.32-7.43) VBG pCO2 47.0 46.0 (40-60) VBG HCO3 21.6 21.1 (21-28) mmol/l VBG Total CO2 23.0 22.5 (22-28) mmol.L VBG O2 Sat (Calc) 69.8 H 57.6 (40-65) % VBG Base Excess -5.4 L -5.9 L (0.0-2.0) mmol/L VBG Potassium 4.6 3.9 (3.6-5.2) mmol/L Sodium 140.0 139.0 (132-148) mmol/L Chloride 107.0 106.0 (98-107) mmol/L Glucose 168 H 189 H (65-105) mg/dl Lactate 6.5 H* 6.8 H* (0.7-2.1) mmol/L FiO2 21.0 21.0 % Inspiratory BiPAP Potassium (3.6-5.0) mmol/L Carbon Dioxide (21-33) mmol/L Anion Gap (10-20) BUN (7-21) mg/dL Creatinine (0.7-1.2) mg/dl Est GFR ( Amer) Est GFR (Non-Af Amer) Random Glucose (70-110) mg/dL Calcium (8.4-10.5) mg/dL Phosphorus (2.5-4.5) mg/dL Magnesium (1.7-2.2) mg/dL Iron (45-180) ug/dL TIBC (265-497) ug/dL % Saturation (20-55) % Total Bilirubin (0.2-1.3) mg/dL AST (14-36) U/L ALT (7-56) U/L Alkaline Phosphatase (38-126) U/L Lactate Dehydrogenase (333-699) U/L Total Creatine Kinase (35-230) U/L Troponin I ng/mL NT-Pro-B Natriuret Pep (0-450) pg/mL Total Protein (5.8-8.3) g/dL Albumin (3.0-4.8) g/dL Globulin gm/dL Albumin/Globulin Ratio (1.1-1.8) Arterial Blood Potassium (3.6-5.2) mmol/L Venous Blood Potassium 4.6 3.9 (3.6-5.2) mmol/L Urine Color (YELLOW) Urine Appearance (CLEAR) Urine pH (4.7-8.0) Ur Specific [place] (1.005-1.035) Urine Protein (<30 mg/dL) mg/dL Urine Glucose (UA) (NEGATIVE) mg/dL Urine Ketones (NEGATIVE) mg/dL Urine Blood (NEGATIVE) Urine Nitrate (NEGATIVE) Urine Bilirubin (NEGATIVE) Urine Urobilinogen (<1 E.U./dL) E.U./dL Ur Leukocyte Esterase (NEGATIVE) Marsha/uL Urine RBC (0-2) /hpf Urine WBC (0-6) /hpf Ur Epithelial Cells (0-5) /hpf 01/22/18 01/22/18 01/22/18 Range/Units 21:25 19:12 18:21 WBC (4.5-11.0) 10^3/ul RBC (3.5-6.1) 10^6/uL Hgb (12.0-16.0) g/dL Hct (36.0-48.0) % MCV (80.0-105.0) fl MCH (25.0-35.0) pg MCHC (31.0-37.0) g/dl RDW (11.5-14.5) % Plt Count (120.0-450.0) 10^3/uL MPV (7.0-11.0) fl Gran % (50.0-68.0) % Lymph % (Auto) (22.0-35.0) % [place] % (Auto) (1.0-6.0) % Eos % (Auto) (1.5-5.0) % Baso % (Auto) (0.0-3.0) % Gran # (1.4-6.5) Lymph # (Auto) (1.2-3.4) [place] # (Auto) (0.1-0.6) Eos # (Auto) (0.0-0.7) Baso # (Auto) (0.0-2.0) K/mm3 PT (9.4-12.5) SECONDS INR APTT (25.1-36.5) Seconds D-Dimer, Quantitative (0-243) ng/mlDDU pCO2 30 L (35-45) mm/Hg pO2 329.0 H (30-55) mm/Hg HCO3 18.2 L (21-28) mmol/L ABG pH 7.39 (7.35-7.45) ABG Total CO2 19.1 L (22-28) mmol.L ABG O2 Saturation 100.2 H (95-98) % ABG Base Excess -5.6 L (-2.0-3.0) mmol/L ABG Potassium 3.7 (3.6-5.2) mmol/L VBG pH (7.32-7.43) VBG pCO2 (40-60) VBG HCO3 (21-28) mmol/l VBG Total CO2 (22-28) mmol.L VBG O2 Sat (Calc) (40-65) % VBG Base Excess (0.0-2.0) mmol/L VBG Potassium (3.6-5.2) mmol/L Sodium 139.0 (132-148) mmol/L Chloride 108.0 H (98-107) mmol/L Glucose 179 H (65-105) mg/dl Lactate 5.6 H* (0.7-2.1) mmol/L FiO2 100.0 % Inspiratory BiPAP 12 Potassium (3.6-5.0) mmol/L Carbon Dioxide (21-33) mmol/L Anion Gap (10-20) BUN (7-21) mg/dL Creatinine (0.7-1.2) mg/dl Est GFR ( Amer) Est GFR (Non-Af Amer) Random Glucose (70-110) mg/dL Calcium (8.4-10.5) mg/dL Phosphorus (2.5-4.5) mg/dL Magnesium (1.7-2.2) mg/dL Iron (45-180) ug/dL TIBC (265-497) ug/dL % Saturation (20-55) % Total Bilirubin (0.2-1.3) mg/dL AST (14-36) U/L ALT (7-56) U/L Alkaline Phosphatase (38-126) U/L Lactate Dehydrogenase (333-699) U/L Total Creatine Kinase (35-230) U/L Troponin I 0.01 ng/mL NT-Pro-B Natriuret Pep (0-450) pg/mL Total Protein (5.8-8.3) g/dL Albumin (3.0-4.8) g/dL Globulin gm/dL Albumin/Globulin Ratio (1.1-1.8) Arterial Blood Potassium 3.7 (3.6-5.2) mmol/L Venous Blood Potassium (3.6-5.2) mmol/L Urine Color Yellow (YELLOW) Urine Appearance Clear (CLEAR) Urine pH 6.0 (4.7-8.0) Ur Specific [place] 1.025 (1.005-1.035) Urine Protein Trace H (<30 mg/dL) mg/dL Urine Glucose (UA) Negative (NEGATIVE) mg/dL Urine Ketones Negative (NEGATIVE) mg/dL Urine Blood Negative (NEGATIVE) Urine Nitrate Negative (NEGATIVE) Urine Bilirubin Negative (NEGATIVE) Urine Urobilinogen 0.2 (<1 E.U./dL) E.U./dL Ur Leukocyte Esterase Negative (NEGATIVE) Marsha/uL Urine RBC Negative (0-2) /hpf Urine WBC Negative (0-6) /hpf Ur Epithelial Cells 0 - 2 (0-5) /hpf 01/22/18 01/22/18 01/22/18 Range/Units 16:30 16:18 16:18 WBC (4.5-11.0) 10^3/ul RBC (3.5-6.1) 10^6/uL Hgb (12.0-16.0) g/dL Hct (36.0-48.0) % MCV (80.0-105.0) fl MCH (25.0-35.0) pg MCHC (31.0-37.0) g/dl RDW (11.5-14.5) % Plt Count (120.0-450.0) 10^3/uL MPV (7.0-11.0) fl Gran % (50.0-68.0) % Lymph % (Auto) (22.0-35.0) % [place] % (Auto) (1.0-6.0) % Eos % (Auto) (1.5-5.0) % Baso % (Auto) (0.0-3.0) % Gran # (1.4-6.5) Lymph # (Auto) (1.2-3.4) [place] # (Auto) (0.1-0.6) Eos # (Auto) (0.0-0.7) Baso # (Auto) (0.0-2.0) K/mm3 PT (9.4-12.5) SECONDS INR APTT (25.1-36.5) Seconds D-Dimer, Quantitative (0-243) ng/mlDDU pCO2 (35-45) mm/Hg pO2 34 (30-55) mm/Hg HCO3 (21-28) mmol/L ABG pH (7.35-7.45) ABG Total CO2 (22-28) mmol.L ABG O2 Saturation (95-98) % ABG Base Excess (-2.0-3.0) mmol/L ABG Potassium (3.6-5.2) mmol/L VBG pH 7.16 L* (7.32-7.43) VBG pCO2 62.0 H (40-60) VBG HCO3 22.1 (21-28) mmol/l VBG Total CO2 24.0 (22-28) mmol.L VBG O2 Sat (Calc) 50.8 (40-65) % VBG Base Excess -7.5 L (0.0-2.0) mmol/L VBG Potassium 4.1 (3.6-5.2) mmol/L Sodium 140 141.0 (132-148) mmol/L Chloride 103 103.0 (98-107) mmol/L Glucose 236 H (65-105) mg/dl Lactate 8.0 H* (0.7-2.1) mmol/L FiO2 21.0 % Inspiratory BiPAP Potassium 4.0 (3.6-5.0) mmol/L Carbon Dioxide 19 L (21-33) mmol/L Anion Gap 22 H (10-20) BUN 17 (7-21) mg/dL Creatinine 1.0 (0.7-1.2) mg/dl Est GFR ( Amer) > 60 Est GFR (Non-Af Amer) 52 Random Glucose 221 H (70-110) mg/dL Calcium 9.4 (8.4-10.5) mg/dL Phosphorus (2.5-4.5) mg/dL Magnesium 1.6 L (1.7-2.2) mg/dL Iron 24 L (45-180) ug/dL TIBC 271 (265-497) ug/dL % Saturation 9 L (20-55) % Total Bilirubin 0.6 (0.2-1.3) mg/dL AST 31 (14-36) U/L ALT 25 (7-56) U/L Alkaline Phosphatase 117 (38-126) U/L Lactate Dehydrogenase 397 (333-699) U/L Total Creatine Kinase 30 L (35-230) U/L Troponin I < 0.01 ng/mL NT-Pro-B Natriuret Pep 378 (0-450) pg/mL Total Protein 7.8 (5.8-8.3) g/dL Albumin 3.9 (3.0-4.8) g/dL Globulin 3.8 gm/dL Albumin/Globulin Ratio 1.0 L (1.1-1.8) Arterial Blood Potassium (3.6-5.2) mmol/L Venous Blood Potassium 4.1 (3.6-5.2) mmol/L Urine Color (YELLOW) Urine Appearance (CLEAR) Urine pH (4.7-8.0) Ur Specific [place] (1.005-1.035) Urine Protein (<30 mg/dL) mg/dL Urine Glucose (UA) (NEGATIVE) mg/dL Urine Ketones (NEGATIVE) mg/dL Urine Blood (NEGATIVE) Urine Nitrate (NEGATIVE) Urine Bilirubin (NEGATIVE) Urine Urobilinogen (<1 E.U./dL) E.U./dL Ur Leukocyte Esterase (NEGATIVE) Marsha/uL Urine RBC (0-2) /hpf Urine WBC (0-6) /hpf Ur Epithelial Cells (0-5) /hpf 01/22/1818 Range/Units 16:18 16:18 WBC 10.7 D (4.5-11.0) 10^3/ul RBC 5.81 (3.5-6.1) 10^6/uL Hgb 11.9 L (12.0-16.0) g/dL Hct 38.0 (36.0-48.0) % MCV 65.4 L (80.0-105.0) fl MCH 20.5 L (25.0-35.0) pg MCHC 31.3 (31.0-37.0) g/dl RDW 16.9 H (11.5-14.5) % Plt Count 353 (120.0-450.0) 10^3/uL MPV 10.0 (7.0-11.0) fl Gran % 80.4 H (50.0-68.0) % Lymph % (Auto) 15.7 L (22.0-35.0) % [place] % (Auto) 3.7 (1.0-6.0) % Eos % (Auto) 0.0 L (1.5-5.0) % Baso % (Auto) 0.2 (0.0-3.0) % Gran # 8.59 H (1.4-6.5) Lymph # (Auto) 1.7 (1.2-3.4) [place] # (Auto) 0.4 (0.1-0.6) Eos # (Auto) 0.0 (0.0-0.7) Baso # (Auto) 0.02 (0.0-2.0) K/mm3 PT 12.8 H (9.4-12.5) SECONDS INR 1.12 APTT 30.5 (25.1-36.5) Seconds D-Dimer, Quantitative (0-243) ng/mlDDU pCO2 (35-45) mm/Hg pO2 (30-55) mm/Hg HCO3 (21-28) mmol/L ABG pH (7.35-7.45) ABG Total CO2 (22-28) mmol.L ABG O2 Saturation (95-98) % ABG Base Excess (-2.0-3.0) mmol/L ABG Potassium (3.6-5.2) mmol/L VBG pH (7.32-7.43) VBG pCO2 (40-60) VBG HCO3 (21-28) mmol/l VBG Total CO2 (22-28) mmol.L VBG O2 Sat (Calc) (40-65) % VBG Base Excess (0.0-2.0) mmol/L VBG Potassium (3.6-5.2) mmol/L Sodium (132-148) mmol/L Chloride (98-107) mmol/L Glucose (65-105) mg/dl Lactate (0.7-2.1) mmol/L FiO2 % Inspiratory BiPAP Potassium (3.6-5.0) mmol/L Carbon Dioxide (21-33) mmol/L Anion Gap (10-20) BUN (7-21) mg/dL Creatinine (0.7-1.2) mg/dl Est GFR ( Amer) Est GFR (Non-Af Amer) Random Glucose (70-110) mg/dL Calcium (8.4-10.5) mg/dL Phosphorus (2.5-4.5) mg/dL Magnesium (1.7-2.2) mg/dL Iron (45-180) ug/dL TIBC (265-497) ug/dL % Saturation (20-55) % Total Bilirubin (0.2-1.3) mg/dL AST (14-36) U/L ALT (7-56) U/L Alkaline Phosphatase (38-126) U/L Lactate Dehydrogenase (333-699) U/L Total Creatine Kinase (35-230) U/L Troponin I ng/mL NT-Pro-B Natriuret Pep (0-450) pg/mL Total Protein (5.8-8.3) g/dL Albumin (3.0-4.8) g/dL Globulin gm/dL Albumin/Globulin Ratio (1.1-1.8) Arterial Blood Potassium (3.6-5.2) mmol/L Venous Blood Potassium (3.6-5.2) mmol/L Urine Color (YELLOW) Urine Appearance (CLEAR) Urine pH (4.7-8.0) Ur Specific [place] (1.005-1.035) Urine Protein (<30 mg/dL) mg/dL Urine Glucose (UA) (NEGATIVE) mg/dL Urine Ketones (NEGATIVE) mg/dL Urine Blood (NEGATIVE) Urine Nitrate (NEGATIVE) Urine Bilirubin (NEGATIVE) Urine Urobilinogen (<1 E.U./dL) E.U./dL Ur Leukocyte Esterase (NEGATIVE) Marsha/uL Urine RBC (0-2) /hpf Urine WBC (0-6) /hpf Ur Epithelial Cells (0-5) /hpf Laboratory Results - last 24 hr 01/22/1818 18 16:18 16:18 16:18 WBC 10.7 D RBC 5.81 Hgb 11.9 L Hct 38.0 MCV 65.4 L MCH 20.5 L MCHC 31.3 RDW 16.9 H Plt Count 353 MPV 10.0 Gran % 80.4 H Lymph % (Auto) 15.7 L [place] % (Auto) 3.7 Eos % (Auto) 0.0 L Baso % (Auto) 0.2 Gran # 8.59 H Lymph # (Auto) 1.7 [place] # (Auto) 0.4 Eos # (Auto) 0.0 Baso # (Auto) 0.02 PT 12.8 H INR 1.12 APTT 30.5 D-Dimer, Quantitative pCO2 pO2 34 HCO3 ABG pH ABG Total CO2 ABG O2 Saturation ABG Base Excess ABG Potassium VBG pH 7.16 L* VBG pCO2 62.0 H VBG HCO3 22.1 VBG Total CO2 24.0 VBG O2 Sat (Calc) 50.8 VBG Base Excess -7.5 L VBG Potassium 4.1 Sodium 141.0 Chloride 103.0 Glucose 236 H Lactate 8.0 H* FiO2 21.0 Inspiratory BiPAP Potassium Carbon Dioxide Anion Gap BUN Creatinine Est GFR ( Amer) Est GFR (Non-Af Amer) Random Glucose Calcium Phosphorus Magnesium Iron TIBC % Saturation Total Bilirubin AST ALT Alkaline Phosphatase Lactate Dehydrogenase Total Creatine Kinase Troponin I NT-Pro-B Natriuret Pep Total Protein Albumin Globulin Albumin/Globulin Ratio Arterial Blood Potassium Venous Blood Potassium 4.1 Urine Color Urine Appearance Urine pH Ur Specific [place] Urine Protein Urine Glucose (UA) Urine Ketones Urine Blood Urine Nitrate Urine Bilirubin Urine Urobilinogen Ur Leukocyte Esterase Urine RBC Urine WBC Ur Epithelial Cells 01/22/18 01/22/18 01/22/18 16:18 16:30 18:21 WBC RBC Hgb Hct MCV MCH MCHC RDW Plt Count MPV Gran % Lymph % (Auto) [place] % (Auto) Eos % (Auto) Baso % (Auto) Gran # Lymph # (Auto) [place] # (Auto) Eos # (Auto) Baso # (Auto) PT INR APTT D-Dimer, Quantitative pCO2 pO2 HCO3 ABG pH ABG Total CO2 ABG O2 Saturation ABG Base Excess ABG Potassium VBG pH VBG pCO2 VBG HCO3 VBG Total CO2 VBG O2 Sat (Calc) VBG Base Excess VBG Potassium Sodium 140 Chloride 103 Glucose Lactate FiO2 Inspiratory BiPAP Potassium 4.0 Carbon Dioxide 19 L Anion Gap 22 H BUN 17 Creatinine 1.0 Est GFR ( Amer) > 60 Est GFR (Non-Af Amer) 52 Random Glucose 221 H Calcium 9.4 Phosphorus Magnesium 1.6 L Iron 24 L TIBC 271 % Saturation 9 L Total Bilirubin 0.6 AST 31 ALT 25 Alkaline Phosphatase 117 Lactate Dehydrogenase 397 Total Creatine Kinase 30 L Troponin I < 0.01 NT-Pro-B Natriuret Pep 378 Total Protein 7.8 Albumin 3.9 Globulin 3.8 Albumin/Globulin Ratio 1.0 L Arterial Blood Potassium Venous Blood Potassium Urine Color Yellow Urine Appearance Clear Urine pH 6.0 Ur Specific [place] 1.025 Urine Protein Trace H Urine Glucose (UA) Negative Urine Ketones Negative Urine Blood Negative Urine Nitrate Negative Urine Bilirubin Negative Urine Urobilinogen 0.2 Ur Leukocyte Esterase Negative Urine RBC Negative Urine WBC Negative Ur Epithelial Cells 0 - 2 01/22/18 01/22/18 01/22/18 19:12 21:25 21:25 WBC RBC Hgb Hct MCV MCH MCHC RDW Plt Count MPV Gran % Lymph % (Auto) [place] % (Auto) Eos % (Auto) Baso % (Auto) Gran # Lymph # (Auto) [place] # (Auto) Eos # (Auto) Baso # (Auto) PT INR APTT D-Dimer, Quantitative 629 H pCO2 30 L pO2 329.0 H HCO3 18.2 L ABG pH 7.39 ABG Total CO2 19.1 L ABG O2 Saturation 100.2 H ABG Base Excess -5.6 L ABG Potassium 3.7 VBG pH VBG pCO2 VBG HCO3 VBG Total CO2 VBG O2 Sat (Calc) VBG Base Excess VBG Potassium Sodium 139.0 Chloride 108.0 H Glucose 179 H Lactate 5.6 H* FiO2 100.0 Inspiratory BiPAP 12 Potassium Carbon Dioxide Anion Gap BUN Creatinine Est GFR ( Amer) Est GFR (Non-Af Amer) Random Glucose Calcium Phosphorus Magnesium Iron TIBC % Saturation Total Bilirubin AST ALT Alkaline Phosphatase Lactate Dehydrogenase Total Creatine Kinase Troponin I 0.01 NT-Pro-B Natriuret Pep Total Protein Albumin Globulin Albumin/Globulin Ratio Arterial Blood Potassium 3.7 Venous Blood Potassium Urine Color Urine Appearance Urine pH Ur Specific [place] Urine Protein Urine Glucose (UA) Urine Ketones Urine Blood Urine Nitrate Urine Bilirubin Urine Urobilinogen Ur Leukocyte Esterase Urine RBC Urine WBC Ur Epithelial Cells 01/22/18 01/23/18 01/23/18 23:07 02:40 05:35 WBC RBC Hgb Hct MCV MCH MCHC RDW Plt Count MPV Gran % Lymph % (Auto) [place] % (Auto) Eos % (Auto) Baso % (Auto) Gran # Lymph # (Auto) [place] # (Auto) Eos # (Auto) Baso # (Auto) PT INR APTT D-Dimer, Quantitative pCO2 31 L pO2 33 39 189.0 H HCO3 21.1 ABG pH 7.44 ABG Total CO2 22.1 ABG O2 Saturation 99.9 H ABG Base Excess -2.1 L ABG Potassium 4.2 VBG pH 7.27 L 7.27 L VBG pCO2 46.0 47.0 VBG HCO3 21.1 21.6 VBG Total CO2 22.5 23.0 VBG O2 Sat (Calc) 57.6 69.8 H VBG Base Excess -5.9 L -5.4 L VBG Potassium 3.9 4.6 Sodium 139.0 140.0 140.0 Chloride 106.0 107.0 113.0 H Glucose 189 H 168 H 155 H Lactate 6.8 H* 6.5 H* 2.9 H FiO2 21.0 21.0 60.0 Inspiratory BiPAP Potassium Carbon Dioxide Anion Gap BUN Creatinine Est GFR ( Amer) Est GFR (Non-Af Amer) Random Glucose Calcium Phosphorus Magnesium Iron TIBC % Saturation Total Bilirubin AST ALT Alkaline Phosphatase Lactate Dehydrogenase Total Creatine Kinase Troponin I NT-Pro-B Natriuret Pep Total Protein Albumin Globulin Albumin/Globulin Ratio Arterial Blood Potassium 4.2 Venous Blood Potassium 3.9 4.6 Urine Color Urine Appearance Urine pH Ur Specific [place] Urine Protein Urine Glucose (UA) Urine Ketones Urine Blood Urine Nitrate Urine Bilirubin Urine Urobilinogen Ur Leukocyte Esterase Urine RBC Urine WBC Ur Epithelial Cells 01/23/18 01/23/18 06:20 06:20 WBC 20.6 H D RBC 4.43 Hgb 9.2 L D Hct 28.4 L MCV 64.1 L MCH 20.8 L MCHC 32.4 RDW 16.4 H Plt Count 229 MPV 9.7 Gran % 89.3 H Lymph % (Auto) 6.4 L [place] % (Auto) 4.3 Eos % (Auto) 0.0 L Baso % (Auto) 0.0 Gran # 18.39 H Lymph # (Auto) 1.3 [place] # (Auto) 0.9 H Eos # (Auto) 0.0 Baso # (Auto) 0.01 PT INR APTT D-Dimer, Quantitative pCO2 pO2 HCO3 ABG pH ABG Total CO2 ABG O2 Saturation ABG Base Excess ABG Potassium VBG pH VBG pCO2 VBG HCO3 VBG Total CO2 VBG O2 Sat (Calc) VBG Base Excess VBG Potassium Sodium 140 Chloride 108 H Glucose Lactate FiO2 Inspiratory BiPAP Potassium 4.9 Carbon Dioxide 22 Anion Gap 15 BUN 27 H Creatinine 1.3 H Est GFR ( Amer) 47 Est GFR (Non-Af Amer) 39 Random Glucose 157 H Calcium 9.0 Phosphorus 3.3 Magnesium 2.2 Iron TIBC % Saturation Total Bilirubin 0.4 AST 25 ALT 26 Alkaline Phosphatase 69 Lactate Dehydrogenase Total Creatine Kinase Troponin I NT-Pro-B Natriuret Pep Total Protein 6.5 Albumin 3.3 Globulin 3.2 Albumin/Globulin Ratio 1.0 L Arterial Blood Potassium Venous Blood Potassium Urine Color Urine Appearance Urine pH Ur Specific [place] Urine Protein Urine Glucose (UA) Urine Ketones Urine Blood Urine Nitrate Urine Bilirubin Urine Urobilinogen Ur Leukocyte Esterase Urine RBC Urine WBC Ur Epithelial Cells EKG/Cardiology Studies: Cardiology / EKG Studies 01/22/18 17:18 ELECTROCARDIOGRAM Stat Comment: Reason For Exam: sob 01/23/18 07:00 EKG [ELECTROCARDIOGRAM] Routine Comment: Reason For Exam: tachy Fingerstick Blood Sugar Results: 174 Review of Systems - Review of Systems Systems not reviewed;Unavailable: Dementia Critical Care Progress Note - Nutrition Nutrition: Nutrition Category Date Time Status NPO Diet [DIET] Diets 01/22/18 Breakfast Ordered Assessment/Plan - Assessment and Plan (Free Text) Assessment: 87 yo F with PMH of dementia, HLD, HTN, vertigo, TIA in 2013, hiatal hernia, and gastric polyps admitted to ICU for sepsis 2/2 bilateral PNA R > L. Since admission to ICU, HR has been <100, MAP > 70, and afebrile. Plan: Neuro: Hx of dementia Non-verbal but responsive to painful stimuli and opens eyes spontaneously Per caregiver, patient is at baseline Palliative care consulted to discuss DNI status Cardio: Admitted to ICU for concern of episodes of hypotension/tachycardia with b/l R > L PNA Now patient has RRR, MAP > 70 since admission D-dimer elevated, LE doppler US pending Continue to monitor HR Stable for transfer to remote tele Pulm: Was placed on bipap in ED for concern of hypoxia Hypoxia likely 2/2 worsening b/l PNA Now maintaining SpO2 > 90% on 2L NC May continue high flow O2 as needed Continue to monitor SpO2 closely Palliative care consulted to discuss DNI status, patient is currently DNR alone GI: NPO pending swallow evaluation Protonix for GI PPX /Nephro: BUN/Cr stable but increased from prior readings at 27/1.3 Likely has EDDA 2/2 sepsis/dehydration Continue to monitor BUN/Cr closely, especially after contrast from CTA Maintain euvolemia Replete electrolytes as needed ID: Found to have significant b/l infiltrates on CXR on admission On rocephin and doxycycline for treatment of CAP per ID ID following recs appreciated Heme/Onc: Microcytic anemia noted Similar to prior visits Further Fe studies/microcytic anemia w/u per primary team DVT/GI PPX: SC heparin and protonix DNR Transfer to remote tele Case and plan reviewed and discussed with my attending Dr. Emma Hernandes, IM Resident PGY-1 <Ronald Carter - Last Filed: 01/23/18 11:12> CCU Objective - Vital Signs / Intake & Output Vital Signs (Last 4 hours): Vital Signs BP 01/23/18 09:29 147/80 Intake and Output (Last 8hrs): Intake & Output 01/22/18 01/23/18 01/23/18 22:59 06:59 14:59 Intake Total 750 Output Total 50 Balance 700 Weight 125 lb 113 lb 3.2 oz Intake: IV 750 Left Hand 750 Output: Urine 50 Urethral (Saez) 50 Other: Voiding Method Indwelling Catheter # Bowel Movements 1 - Medications Active Medications: Active Medications Generic Name Dose Route Start Last Admin Trade Name Freq PRN Reason Stop Dose Admin Dextrose 0 ml 01/22/18 20:56 Dextrose 50% Inj IV STAT PRN Hypoglycemia Protocol Protocol Furosemide 40 mg 01/23/18 10:00 01/23/18 09:29 Lasix IVP 40 mg DAILY JORJE Administration Heparin Sodium (Porcine) 5,000 units 01/22/18 22:00 01/23/18 07:07 Heparin SC Not Given Q8 JORJE Protocol Dextrose 1,000 mls @ 0 mls/hr 01/22/18 20:56 Dextrose 5% In Water 1000 Ml IV .Q0M PRN Hypoglycemia Protocol Protocol Per Protocol Doxycycline Hyclate 100 mg/ 100 mls @ 100 mls/hr 01/23/18 10:00 01/23/18 09:28 Sodium Chloride IVPB 100 mls/hr Q12 JORJE Administration Protocol Ceftriaxone Sodium 1 gm in 100 mls @ 100 mls/hr 01/23/18 10:00 01/23/18 09:28 Rocephin 1 Gram Ivpb IVPB 100 mls/hr DAILY JORJE Administration Protocol Insulin Human Lispro 0 units 01/22/18 21:00 01/23/18 02:00 Humalog Med SC Not Given Q6H JORJE Protocol Ipratropium [place] 0.5 mg 01/23/18 02:00 01/23/18 02:27 Atrovent IH 0.5 mg [id number] JORJE Administration Levalbuterol HCl 1.25 mg 01/22/18 20:00 01/23/18 02:28 Xopenex IH 1.25 mg [id number] JORJE Administration Methylprednisolone 40 mg 01/22/18 22:00 01/23/18 09:28 Solu-Medrol IV 40 mg Q12 JORJE Administration Pantoprazole Sodium 40 mg 01/23/18 10:00 01/23/18 09:28 Protonix Inj IVP 40 mg DAILY JORJE Administration - Patient Studies Lab Studies: Lab Studies 01/23/18 01/23/18 01/23/18 Range/Units 10:10 06:20 06:20 WBC 20.6 H D (4.5-11.0) 10^3/ul RBC 4.43 (3.5-6.1) 10^6/uL Hgb 9.2 L D (12.0-16.0) g/dL Hct 28.4 L (36.0-48.0) % MCV 64.1 L (80.0-105.0) fl MCH 20.8 L (25.0-35.0) pg MCHC 32.4 (31.0-37.0) g/dl RDW 16.4 H (11.5-14.5) % Plt Count 229 (120.0-450.0) 10^3/uL MPV 9.7 (7.0-11.0) fl Gran % 89.3 H (50.0-68.0) % Lymph % (Auto) 6.4 L (22.0-35.0) % [place] % (Auto) 4.3 (1.0-6.0) % Eos % (Auto) 0.0 L (1.5-5.0) % Baso % (Auto) 0.0 (0.0-3.0) % Gran # 18.39 H (1.4-6.5) Lymph # (Auto) 1.3 (1.2-3.4) [place] # (Auto) 0.9 H (0.1-0.6) Eos # (Auto) 0.0 (0.0-0.7) Baso # (Auto) 0.01 (0.0-2.0) K/mm3 PT (9.4-12.5) SECONDS INR APTT (25.1-36.5) Seconds D-Dimer, Quantitative (0-243) ng/mlDDU pCO2 (35-45) mm/Hg pO2 35 (30-55) mm/Hg HCO3 (21-28) mmol/L ABG pH (7.35-7.45) ABG Total CO2 (22-28) mmol.L ABG O2 Saturation (95-98) % ABG Base Excess (-2.0-3.0) mmol/L ABG Potassium (3.6-5.2) mmol/L VBG pH 7.35 (7.32-7.43) VBG pCO2 45.0 (40-60) VBG HCO3 24.8 (21-28) mmol/l VBG Total CO2 26.2 (22-28) mmol.L VBG O2 Sat (Calc) 67.7 H (40-65) % VBG Base Excess -1.1 L (0.0-2.0) mmol/L VBG Potassium 4.4 (3.6-5.2) mmol/L Sodium 139.0 140 (132-148) mmol/L Chloride 109.0 H 108 H (98-107) mmol/L Glucose 135 H (65-105) mg/dl Lactate 3.0 H (0.7-2.1) mmol/L FiO2 21.0 % Inspiratory BiPAP Potassium 4.9 (3.6-5.0) mmol/L Carbon Dioxide 22 (21-33) mmol/L Anion Gap 15 (10-20) BUN 27 H (7-21) mg/dL Creatinine 1.3 H (0.7-1.2) mg/dl Est GFR ( Amer) 47 Est GFR (Non-Af Amer) 39 POC Glucose (mg/dL) (65-110) mg/dL Random Glucose 157 H (70-110) mg/dL Calcium 9.0 (8.4-10.5) mg/dL Phosphorus 3.3 (2.5-4.5) mg/dL Magnesium 2.2 (1.7-2.2) mg/dL Iron (45-180) ug/dL TIBC (265-497) ug/dL % Saturation (20-55) % Total Bilirubin 0.4 (0.2-1.3) mg/dL AST 25 (14-36) U/L ALT 26 (7-56) U/L Alkaline Phosphatase 69 (38-126) U/L Lactate Dehydrogenase (333-699) U/L Total Creatine Kinase (35-230) U/L Troponin I ng/mL NT-Pro-B Natriuret Pep (0-450) pg/mL Total Protein 6.5 (5.8-8.3) g/dL Albumin 3.3 (3.0-4.8) g/dL Globulin 3.2 gm/dL Albumin/Globulin Ratio 1.0 L (1.1-1.8) Arterial Blood Potassium (3.6-5.2) mmol/L Venous Blood Potassium 4.4 (3.6-5.2) mmol/L Urine Color (YELLOW) Urine Appearance (CLEAR) Urine pH (4.7-8.0) Ur Specific [place] (1.005-1.035) Urine Protein (<30 mg/dL) mg/dL Urine Glucose (UA) (NEGATIVE) mg/dL Urine Ketones (NEGATIVE) mg/dL Urine Blood (NEGATIVE) Urine Nitrate (NEGATIVE) Urine Bilirubin (NEGATIVE) Urine Urobilinogen (<1 E.U./dL) E.U./dL Ur Leukocyte Esterase (NEGATIVE) Marsha/uL Urine RBC (0-2) /hpf Urine WBC (0-6) /hpf Ur Epithelial Cells (0-5) /hpf 01/23/18 01/23/18 01/23/18 Range/Units 06:14 05:35 02:40 WBC (4.5-11.0) 10^3/ul RBC (3.5-6.1) 10^6/uL Hgb (12.0-16.0) g/dL Hct (36.0-48.0) % MCV (80.0-105.0) fl MCH (25.0-35.0) pg MCHC (31.0-37.0) g/dl RDW (11.5-14.5) % Plt Count (120.0-450.0) 10^3/uL MPV (7.0-11.0) fl Gran % (50.0-68.0) % Lymph % (Auto) (22.0-35.0) % [place] % (Auto) (1.0-6.0) % Eos % (Auto) (1.5-5.0) % Baso % (Auto) (0.0-3.0) % Gran # (1.4-6.5) Lymph # (Auto) (1.2-3.4) [place] # (Auto) (0.1-0.6) Eos # (Auto) (0.0-0.7) Baso # (Auto) (0.0-2.0) K/mm3 PT (9.4-12.5) SECONDS INR APTT (25.1-36.5) Seconds D-Dimer, Quantitative (0-243) ng/mlDDU pCO2 31 L (35-45) mm/Hg pO2 189.0 H 39 (30-55) mm/Hg HCO3 21.1 (21-28) mmol/L ABG pH 7.44 (7.35-7.45) ABG Total CO2 22.1 (22-28) mmol.L ABG O2 Saturation 99.9 H (95-98) % ABG Base Excess -2.1 L (-2.0-3.0) mmol/L ABG Potassium 4.2 (3.6-5.2) mmol/L VBG pH 7.27 L (7.32-7.43) VBG pCO2 47.0 (40-60) VBG HCO3 21.6 (21-28) mmol/l VBG Total CO2 23.0 (22-28) mmol.L VBG O2 Sat (Calc) 69.8 H (40-65) % VBG Base Excess -5.4 L (0.0-2.0) mmol/L VBG Potassium 4.6 (3.6-5.2) mmol/L Sodium 140.0 140.0 (132-148) mmol/L Chloride 113.0 H 107.0 (98-107) mmol/L Glucose 155 H 168 H (65-105) mg/dl Lactate 2.9 H 6.5 H* (0.7-2.1) mmol/L FiO2 60.0 21.0 % Inspiratory BiPAP Potassium (3.6-5.0) mmol/L Carbon Dioxide (21-33) mmol/L Anion Gap (10-20) BUN (7-21) mg/dL Creatinine (0.7-1.2) mg/dl Est GFR ( Amer) Est GFR (Non-Af Amer) POC Glucose (mg/dL) 174 H (65-110) mg/dL Random Glucose (70-110) mg/dL Calcium (8.4-10.5) mg/dL Phosphorus (2.5-4.5) mg/dL Magnesium (1.7-2.2) mg/dL Iron (45-180) ug/dL TIBC (265-497) ug/dL % Saturation (20-55) % Total Bilirubin (0.2-1.3) mg/dL AST (14-36) U/L ALT (7-56) U/L Alkaline Phosphatase (38-126) U/L Lactate Dehydrogenase (333-699) U/L Total Creatine Kinase (35-230) U/L Troponin I ng/mL NT-Pro-B Natriuret Pep (0-450) pg/mL Total Protein (5.8-8.3) g/dL Albumin (3.0-4.8) g/dL Globulin gm/dL Albumin/Globulin Ratio (1.1-1.8) Arterial Blood Potassium 4.2 (3.6-5.2) mmol/L Venous Blood Potassium 4.6 (3.6-5.2) mmol/L Urine Color (YELLOW) Urine Appearance (CLEAR) Urine pH (4.7-8.0) Ur Specific [place] (1.005-1.035) Urine Protein (<30 mg/dL) mg/dL Urine Glucose (UA) (NEGATIVE) mg/dL Urine Ketones (NEGATIVE) mg/dL Urine Blood (NEGATIVE) Urine Nitrate (NEGATIVE) Urine Bilirubin (NEGATIVE) Urine Urobilinogen (<1 E.U./dL) E.U./dL Ur Leukocyte Esterase (NEGATIVE) Marsha/uL Urine RBC (0-2) /hpf Urine WBC (0-6) /hpf Ur Epithelial Cells (0-5) /hpf 01/22/18 01/22/18 01/22/18 Range/Units 23:52 23:07 21:25 WBC (4.5-11.0) 10^3/ul RBC (3.5-6.1) 10^6/uL Hgb (12.0-16.0) g/dL Hct (36.0-48.0) % MCV (80.0-105.0) fl MCH (25.0-35.0) pg MCHC (31.0-37.0) g/dl RDW (11.5-14.5) % Plt Count (120.0-450.0) 10^3/uL MPV (7.0-11.0) fl Gran % (50.0-68.0) % Lymph % (Auto) (22.0-35.0) % [place] % (Auto) (1.0-6.0) % Eos % (Auto) (1.5-5.0) % Baso % (Auto) (0.0-3.0) % Gran # (1.4-6.5) Lymph # (Auto) (1.2-3.4) [place] # (Auto) (0.1-0.6) Eos # (Auto) (0.0-0.7) Baso # (Auto) (0.0-2.0) K/mm3 PT (9.4-12.5) SECONDS INR APTT (25.1-36.5) Seconds D-Dimer, Quantitative 629 H (0-243) ng/mlDDU pCO2 (35-45) mm/Hg pO2 33 (30-55) mm/Hg HCO3 (21-28) mmol/L ABG pH (7.35-7.45) ABG Total CO2 (22-28) mmol.L ABG O2 Saturation (95-98) % ABG Base Excess (-2.0-3.0) mmol/L ABG Potassium (3.6-5.2) mmol/L VBG pH 7.27 L (7.32-7.43) VBG pCO2 46.0 (40-60) VBG HCO3 21.1 (21-28) mmol/l VBG Total CO2 22.5 (22-28) mmol.L VBG O2 Sat (Calc) 57.6 (40-65) % VBG Base Excess -5.9 L (0.0-2.0) mmol/L VBG Potassium 3.9 (3.6-5.2) mmol/L Sodium 139.0 (132-148) mmol/L Chloride 106.0 (98-107) mmol/L Glucose 189 H (65-105) mg/dl Lactate 6.8 H* (0.7-2.1) mmol/L FiO2 21.0 % Inspiratory BiPAP Potassium (3.6-5.0) mmol/L Carbon Dioxide (21-33) mmol/L Anion Gap (10-20) BUN (7-21) mg/dL Creatinine (0.7-1.2) mg/dl Est GFR ( Amer) Est GFR (Non-Af Amer) POC Glucose (mg/dL) 186 H (65-110) mg/dL Random Glucose (70-110) mg/dL Calcium (8.4-10.5) mg/dL Phosphorus (2.5-4.5) mg/dL Magnesium (1.7-2.2) mg/dL Iron (45-180) ug/dL TIBC (265-497) ug/dL % Saturation (20-55) % Total Bilirubin (0.2-1.3) mg/dL AST (14-36) U/L ALT (7-56) U/L Alkaline Phosphatase (38-126) U/L Lactate Dehydrogenase (333-699) U/L Total Creatine Kinase (35-230) U/L Troponin I ng/mL NT-Pro-B Natriuret Pep (0-450) pg/mL Total Protein (5.8-8.3) g/dL Albumin (3.0-4.8) g/dL Globulin gm/dL Albumin/Globulin Ratio (1.1-1.8) Arterial Blood Potassium (3.6-5.2) mmol/L Venous Blood Potassium 3.9 (3.6-5.2) mmol/L Urine Color (YELLOW) Urine Appearance (CLEAR) Urine pH (4.7-8.0) Ur Specific [place] (1.005-1.035) Urine Protein (<30 mg/dL) mg/dL Urine Glucose (UA) (NEGATIVE) mg/dL Urine Ketones (NEGATIVE) mg/dL Urine Blood (NEGATIVE) Urine Nitrate (NEGATIVE) Urine Bilirubin (NEGATIVE) Urine Urobilinogen (<1 E.U./dL) E.U./dL Ur Leukocyte Esterase (NEGATIVE) Marsha/uL Urine RBC (0-2) /hpf Urine WBC (0-6) /hpf Ur Epithelial Cells (0-5) /hpf 01/22/18 01/22/18 01/22/18 Range/Units 21:25 19:12 18:21 WBC (4.5-11.0) 10^3/ul RBC (3.5-6.1) 10^6/uL Hgb (12.0-16.0) g/dL Hct (36.0-48.0) % MCV (80.0-105.0) fl MCH (25.0-35.0) pg MCHC (31.0-37.0) g/dl RDW (11.5-14.5) % Plt Count (120.0-450.0) 10^3/uL MPV (7.0-11.0) fl Gran % (50.0-68.0) % Lymph % (Auto) (22.0-35.0) % [place] % (Auto) (1.0-6.0) % Eos % (Auto) (1.5-5.0) % Baso % (Auto) (0.0-3.0) % Gran # (1.4-6.5) Lymph # (Auto) (1.2-3.4) [place] # (Auto) (0.1-0.6) Eos # (Auto) (0.0-0.7) Baso # (Auto) (0.0-2.0) K/mm3 PT (9.4-12.5) SECONDS INR APTT (25.1-36.5) Seconds D-Dimer, Quantitative (0-243) ng/mlDDU pCO2 30 L (35-45) mm/Hg pO2 329.0 H (30-55) mm/Hg HCO3 18.2 L (21-28) mmol/L ABG pH 7.39 (7.35-7.45) ABG Total CO2 19.1 L (22-28) mmol.L ABG O2 Saturation 100.2 H (95-98) % ABG Base Excess -5.6 L (-2.0-3.0) mmol/L ABG Potassium 3.7 (3.6-5.2) mmol/L VBG pH (7.32-7.43) VBG pCO2 (40-60) VBG HCO3 (21-28) mmol/l VBG Total CO2 (22-28) mmol.L VBG O2 Sat (Calc) (40-65) % VBG Base Excess (0.0-2.0) mmol/L VBG Potassium (3.6-5.2) mmol/L Sodium 139.0 (132-148) mmol/L Chloride 108.0 H (98-107) mmol/L Glucose 179 H (65-105) mg/dl Lactate 5.6 H* (0.7-2.1) mmol/L FiO2 100.0 % Inspiratory BiPAP 12 Potassium (3.6-5.0) mmol/L Carbon Dioxide (21-33) mmol/L Anion Gap (10-20) BUN (7-21) mg/dL Creatinine (0.7-1.2) mg/dl Est GFR ( Amer) Est GFR (Non-Af Amer) POC Glucose (mg/dL) (65-110) mg/dL Random Glucose (70-110) mg/dL Calcium (8.4-10.5) mg/dL Phosphorus (2.5-4.5) mg/dL Magnesium (1.7-2.2) mg/dL Iron (45-180) ug/dL TIBC (265-497) ug/dL % Saturation (20-55) % Total Bilirubin (0.2-1.3) mg/dL AST (14-36) U/L ALT (7-56) U/L Alkaline Phosphatase (38-126) U/L Lactate Dehydrogenase (333-699) U/L Total Creatine Kinase (35-230) U/L Troponin I 0.01 ng/mL NT-Pro-B Natriuret Pep (0-450) pg/mL Total Protein (5.8-8.3) g/dL Albumin (3.0-4.8) g/dL Globulin gm/dL Albumin/Globulin Ratio (1.1-1.8) Arterial Blood Potassium 3.7 (3.6-5.2) mmol/L Venous Blood Potassium (3.6-5.2) mmol/L Urine Color Yellow (YELLOW) Urine Appearance Clear (CLEAR) Urine pH 6.0 (4.7-8.0) Ur Specific [place] 1.025 (1.005-1.035) Urine Protein Trace H (<30 mg/dL) mg/dL Urine Glucose (UA) Negative (NEGATIVE) mg/dL Urine Ketones Negative (NEGATIVE) mg/dL Urine Blood Negative (NEGATIVE) Urine Nitrate Negative (NEGATIVE) Urine Bilirubin Negative (NEGATIVE) Urine Urobilinogen 0.2 (<1 E.U./dL) E.U./dL Ur Leukocyte Esterase Negative (NEGATIVE) Marsha/uL Urine RBC Negative (0-2) /hpf Urine WBC Negative (0-6) /hpf Ur Epithelial Cells 0 - 2 (0-5) /hpf 01/22/18 01/22/18 01/22/18 Range/Units 16:30 16:18 16:18 WBC (4.5-11.0) 10^3/ul RBC (3.5-6.1) 10^6/uL Hgb (12.0-16.0) g/dL Hct (36.0-48.0) % MCV (80.0-105.0) fl MCH (25.0-35.0) pg MCHC (31.0-37.0) g/dl RDW (11.5-14.5) % Plt Count (120.0-450.0) 10^3/uL MPV (7.0-11.0) fl Gran % (50.0-68.0) % Lymph % (Auto) (22.0-35.0) % [place] % (Auto) (1.0-6.0) % Eos % (Auto) (1.5-5.0) % Baso % (Auto) (0.0-3.0) % Gran # (1.4-6.5) Lymph # (Auto) (1.2-3.4) [place] # (Auto) (0.1-0.6) Eos # (Auto) (0.0-0.7) Baso # (Auto) (0.0-2.0) K/mm3 PT (9.4-12.5) SECONDS INR APTT (25.1-36.5) Seconds D-Dimer, Quantitative (0-243) ng/mlDDU pCO2 (35-45) mm/Hg pO2 34 (30-55) mm/Hg HCO3 (21-28) mmol/L ABG pH (7.35-7.45) ABG Total CO2 (22-28) mmol.L ABG O2 Saturation (95-98) % ABG Base Excess (-2.0-3.0) mmol/L ABG Potassium (3.6-5.2) mmol/L VBG pH 7.16 L* (7.32-7.43) VBG pCO2 62.0 H (40-60) VBG HCO3 22.1 (21-28) mmol/l VBG Total CO2 24.0 (22-28) mmol.L VBG O2 Sat (Calc) 50.8 (40-65) % VBG Base Excess -7.5 L (0.0-2.0) mmol/L VBG Potassium 4.1 (3.6-5.2) mmol/L Sodium 140 141.0 (132-148) mmol/L Chloride 103 103.0 (98-107) mmol/L Glucose 236 H (65-105) mg/dl Lactate 8.0 H* (0.7-2.1) mmol/L FiO2 21.0 % Inspiratory BiPAP Potassium 4.0 (3.6-5.0) mmol/L Carbon Dioxide 19 L (21-33) mmol/L Anion Gap 22 H (10-20) BUN 17 (7-21) mg/dL Creatinine 1.0 (0.7-1.2) mg/dl Est GFR ( Amer) > 60 Est GFR (Non-Af Amer) 52 POC Glucose (mg/dL) (65-110) mg/dL Random Glucose 221 H (70-110) mg/dL Calcium 9.4 (8.4-10.5) mg/dL Phosphorus (2.5-4.5) mg/dL Magnesium 1.6 L (1.7-2.2) mg/dL Iron 24 L (45-180) ug/dL TIBC 271 (265-497) ug/dL % Saturation 9 L (20-55) % Total Bilirubin 0.6 (0.2-1.3) mg/dL AST 31 (14-36) U/L ALT 25 (7-56) U/L Alkaline Phosphatase 117 (38-126) U/L Lactate Dehydrogenase 397 (333-699) U/L Total Creatine Kinase 30 L (35-230) U/L Troponin I < 0.01 ng/mL NT-Pro-B Natriuret Pep 378 (0-450) pg/mL Total Protein 7.8 (5.8-8.3) g/dL Albumin 3.9 (3.0-4.8) g/dL Globulin 3.8 gm/dL Albumin/Globulin Ratio 1.0 L (1.1-1.8) Arterial Blood Potassium (3.6-5.2) mmol/L Venous Blood Potassium 4.1 (3.6-5.2) mmol/L Urine Color (YELLOW) Urine Appearance (CLEAR) Urine pH (4.7-8.0) Ur Specific [place] (1.005-1.035) Urine Protein (<30 mg/dL) mg/dL Urine Glucose (UA) (NEGATIVE) mg/dL Urine Ketones (NEGATIVE) mg/dL Urine Blood (NEGATIVE) Urine Nitrate (NEGATIVE) Urine Bilirubin (NEGATIVE) Urine Urobilinogen (<1 E.U./dL) E.U./dL Ur Leukocyte Esterase (NEGATIVE) Marsha/uL Urine RBC (0-2) /hpf Urine WBC (0-6) /hpf Ur Epithelial Cells (0-5) /hpf 01/22/18 01/22/18 Range/Units 16:18 16:18 WBC 10.7 D (4.5-11.0) 10^3/ul RBC 5.81 (3.5-6.1) 10^6/uL Hgb 11.9 L (12.0-16.0) g/dL Hct 38.0 (36.0-48.0) % MCV 65.4 L (80.0-105.0) fl MCH 20.5 L (25.0-35.0) pg MCHC 31.3 (31.0-37.0) g/dl RDW 16.9 H (11.5-14.5) % Plt Count 353 (120.0-450.0) 10^3/uL MPV 10.0 (7.0-11.0) fl Gran % 80.4 H (50.0-68.0) % Lymph % (Auto) 15.7 L (22.0-35.0) % [place] % (Auto) 3.7 (1.0-6.0) % Eos % (Auto) 0.0 L (1.5-5.0) % Baso % (Auto) 0.2 (0.0-3.0) % Gran # 8.59 H (1.4-6.5) Lymph # (Auto) 1.7 (1.2-3.4) [place] # (Auto) 0.4 (0.1-0.6) Eos # (Auto) 0.0 (0.0-0.7) Baso # (Auto) 0.02 (0.0-2.0) K/mm3 PT 12.8 H (9.4-12.5) SECONDS INR 1.12 APTT 30.5 (25.1-36.5) Seconds D-Dimer, Quantitative (0-243) ng/mlDDU pCO2 (35-45) mm/Hg pO2 (30-55) mm/Hg HCO3 (21-28) mmol/L ABG pH (7.35-7.45) ABG Total CO2 (22-28) mmol.L ABG O2 Saturation (95-98) % ABG Base Excess (-2.0-3.0) mmol/L ABG Potassium (3.6-5.2) mmol/L VBG pH (7.32-7.43) VBG pCO2 (40-60) VBG HCO3 (21-28) mmol/l VBG Total CO2 (22-28) mmol.L VBG O2 Sat (Calc) (40-65) % VBG Base Excess (0.0-2.0) mmol/L VBG Potassium (3.6-5.2) mmol/L Sodium (132-148) mmol/L Chloride (98-107) mmol/L Glucose (65-105) mg/dl Lactate (0.7-2.1) mmol/L FiO2 % Inspiratory BiPAP Potassium (3.6-5.0) mmol/L Carbon Dioxide (21-33) mmol/L Anion Gap (10-20) BUN (7-21) mg/dL Creatinine (0.7-1.2) mg/dl Est GFR ( Amer) Est GFR (Non-Af Amer) POC Glucose (mg/dL) (65-110) mg/dL Random Glucose (70-110) mg/dL Calcium (8.4-10.5) mg/dL Phosphorus (2.5-4.5) mg/dL Magnesium (1.7-2.2) mg/dL Iron (45-180) ug/dL TIBC (265-497) ug/dL % Saturation (20-55) % Total Bilirubin (0.2-1.3) mg/dL AST (14-36) U/L ALT (7-56) U/L Alkaline Phosphatase (38-126) U/L Lactate Dehydrogenase (333-699) U/L Total Creatine Kinase (35-230) U/L Troponin I ng/mL NT-Pro-B Natriuret Pep (0-450) pg/mL Total Protein (5.8-8.3) g/dL Albumin (3.0-4.8) g/dL Globulin gm/dL Albumin/Globulin Ratio (1.1-1.8) Arterial Blood Potassium (3.6-5.2) mmol/L Venous Blood Potassium (3.6-5.2) mmol/L Urine Color (YELLOW) Urine Appearance (CLEAR) Urine pH (4.7-8.0) Ur Specific [place] (1.005-1.035) Urine Protein (<30 mg/dL) mg/dL Urine Glucose (UA) (NEGATIVE) mg/dL Urine Ketones (NEGATIVE) mg/dL Urine Blood (NEGATIVE) Urine Nitrate (NEGATIVE) Urine Bilirubin (NEGATIVE) Urine Urobilinogen (<1 E.U./dL) E.U./dL Ur Leukocyte Esterase (NEGATIVE) [place]/uL Urine RBC (0-2) /hpf Urine WBC (0-6) /hpf Ur Epithelial Cells (0-5) /hpf Laboratory Results - last 24 hr 01/22/18 01/22/18 01/22/18 16:18 16:18 16:18 WBC 10.7 D RBC 5.81 Hgb 11.9 L Hct 38.0 MCV 65.4 L MCH 20.5 L MCHC 31.3 RDW 16.9 H Plt Count 353 MPV 10.0 Gran % 80.4 H Lymph % (Auto) 15.7 L [place] % (Auto) 3.7 Eos % (Auto) 0.0 L Baso % (Auto) 0.2 Gran # 8.59 H Lymph # (Auto) 1.7 [place] # (Auto) 0.4 Eos # (Auto) 0.0 Baso # (Auto) 0.02 PT 12.8 H INR 1.12 APTT 30.5 D-Dimer, Quantitative pCO2 pO2 34 HCO3 ABG pH ABG Total CO2 ABG O2 Saturation ABG Base Excess ABG Potassium VBG pH 7.16 L* VBG pCO2 62.0 H VBG HCO3 22.1 VBG Total CO2 24.0 VBG O2 Sat (Calc) 50.8 VBG Base Excess -7.5 L VBG Potassium 4.1 Sodium 141.0 Chloride 103.0 Glucose 236 H Lactate 8.0 H* FiO2 21.0 Inspiratory BiPAP Potassium Carbon Dioxide Anion Gap BUN Creatinine Est GFR ( Amer) Est GFR (Non-Af Amer) POC Glucose (mg/dL) Random Glucose Calcium Phosphorus Magnesium Iron TIBC % Saturation Total Bilirubin AST ALT Alkaline Phosphatase Lactate Dehydrogenase Total Creatine Kinase Troponin I NT-Pro-B Natriuret Pep Total Protein Albumin Globulin Albumin/Globulin Ratio Arterial Blood Potassium Venous Blood Potassium 4.1 Urine Color Urine Appearance Urine pH Ur Specific [place] Urine Protein Urine Glucose (UA) Urine Ketones Urine Blood Urine Nitrate Urine Bilirubin Urine Urobilinogen Ur Leukocyte Esterase Urine RBC Urine WBC Ur Epithelial Cells 01/22/18 01/22/18 01/22/18 16:18 16:30 18:21 WBC RBC Hgb Hct MCV MCH MCHC RDW Plt Count MPV Gran % Lymph % (Auto) [place] % (Auto) Eos % (Auto) Baso % (Auto) Gran # Lymph # (Auto) [place] # (Auto) Eos # (Auto) Baso # (Auto) PT INR APTT D-Dimer, Quantitative pCO2 pO2 HCO3 ABG pH ABG Total CO2 ABG O2 Saturation ABG Base Excess ABG Potassium VBG pH VBG pCO2 VBG HCO3 VBG Total CO2 VBG O2 Sat (Calc) VBG Base Excess VBG Potassium Sodium 140 Chloride 103 Glucose Lactate FiO2 Inspiratory BiPAP Potassium 4.0 Carbon Dioxide 19 L Anion Gap 22 H BUN 17 Creatinine 1.0 Est GFR ( Amer) > 60 Est GFR (Non-Af Amer) 52 POC Glucose (mg/dL) Random Glucose 221 H Calcium 9.4 Phosphorus Magnesium 1.6 L Iron 24 L TIBC 271 % Saturation 9 L Total Bilirubin 0.6 AST 31 ALT 25 Alkaline Phosphatase 117 Lactate Dehydrogenase 397 Total Creatine Kinase 30 L Troponin I < 0.01 NT-Pro-B Natriuret Pep 378 Total Protein 7.8 Albumin 3.9 Globulin 3.8 Albumin/Globulin Ratio 1.0 L Arterial Blood Potassium Venous Blood Potassium Urine Color Yellow Urine Appearance Clear Urine pH 6.0 Ur Specific [place] 1.025 Urine Protein Trace H Urine Glucose (UA) Negative Urine Ketones Negative Urine Blood Negative Urine Nitrate Negative Urine Bilirubin Negative Urine Urobilinogen 0.2 Ur Leukocyte Esterase Negative Urine RBC Negative Urine WBC Negative Ur Epithelial Cells 0 - 2 01/22/18 01/22/18 01/22/18 19:12 21:25 21:25 WBC RBC Hgb Hct MCV MCH MCHC RDW Plt Count MPV Gran % Lymph % (Auto) [place] % (Auto) Eos % (Auto) Baso % (Auto) Gran # Lymph # (Auto) [place] # (Auto) Eos # (Auto) Baso # (Auto) PT INR APTT D-Dimer, Quantitative 629 H pCO2 30 L pO2 329.0 H HCO3 18.2 L ABG pH 7.39 ABG Total CO2 19.1 L ABG O2 Saturation 100.2 H ABG Base Excess -5.6 L ABG Potassium 3.7 VBG pH VBG pCO2 VBG HCO3 VBG Total CO2 VBG O2 Sat (Calc) VBG Base Excess VBG Potassium Sodium 139.0 Chloride 108.0 H Glucose 179 H Lactate 5.6 H* FiO2 100.0 Inspiratory BiPAP 12 Potassium Carbon Dioxide Anion Gap BUN Creatinine Est GFR ( Amer) Est GFR (Non-Af Amer) POC Glucose (mg/dL) Random Glucose Calcium Phosphorus Magnesium Iron TIBC % Saturation Total Bilirubin AST ALT Alkaline Phosphatase Lactate Dehydrogenase Total Creatine Kinase Troponin I 0.01 NT-Pro-B Natriuret Pep Total Protein Albumin Globulin Albumin/Globulin Ratio Arterial Blood Potassium 3.7 Venous Blood Potassium Urine Color Urine Appearance Urine pH Ur Specific [place] Urine Protein Urine Glucose (UA) Urine Ketones Urine Blood Urine Nitrate Urine Bilirubin Urine Urobilinogen Ur Leukocyte Esterase Urine RBC Urine WBC Ur Epithelial Cells 01/22/18 01/22/18 01/23/18 23:07 23:52 02:40 WBC RBC Hgb Hct MCV MCH MCHC RDW Plt Count MPV Gran % Lymph % (Auto) [place] % (Auto) Eos % (Auto) Baso % (Auto) Gran # Lymph # (Auto) [place] # (Auto) Eos # (Auto) Baso # (Auto) PT INR APTT D-Dimer, Quantitative pCO2 pO2 33 39 HCO3 ABG pH ABG Total CO2 ABG O2 Saturation ABG Base Excess ABG Potassium VBG pH 7.27 L 7.27 L VBG pCO2 46.0 47.0 VBG HCO3 21.1 21.6 VBG Total CO2 22.5 23.0 VBG O2 Sat (Calc) 57.6 69.8 H VBG Base Excess -5.9 L -5.4 L VBG Potassium 3.9 4.6 Sodium 139.0 140.0 Chloride 106.0 107.0 Glucose 189 H 168 H Lactate 6.8 H* 6.5 H* FiO2 21.0 21.0 Inspiratory BiPAP Potassium Carbon Dioxide Anion Gap BUN Creatinine Est GFR ( Amer) Est GFR (Non-Af Amer) POC Glucose (mg/dL) 186 H Random Glucose Calcium Phosphorus Magnesium Iron TIBC % Saturation Total Bilirubin AST ALT Alkaline Phosphatase Lactate Dehydrogenase Total Creatine Kinase Troponin I NT-Pro-B Natriuret Pep Total Protein Albumin Globulin Albumin/Globulin Ratio Arterial Blood Potassium Venous Blood Potassium 3.9 4.6 Urine Color Urine Appearance Urine pH Ur Specific [place] Urine Protein Urine Glucose (UA) Urine Ketones Urine Blood Urine Nitrate Urine Bilirubin Urine Urobilinogen Ur Leukocyte Esterase Urine RBC Urine WBC Ur Epithelial Cells 01/23/18 01/23/18 01/23/18 05:35 06:14 06:20 WBC 20.6 H D RBC 4.43 Hgb 9.2 L D Hct 28.4 L MCV 64.1 L MCH 20.8 L MCHC 32.4 RDW 16.4 H Plt Count 229 MPV 9.7 Gran % 89.3 H Lymph % (Auto) 6.4 L [place] % (Auto) 4.3 Eos % (Auto) 0.0 L Baso % (Auto) 0.0 Gran # 18.39 H Lymph # (Auto) 1.3 [place] # (Auto) 0.9 H Eos # (Auto) 0.0 Baso # (Auto) 0.01 PT INR APTT D-Dimer, Quantitative pCO2 31 L pO2 189.0 H HCO3 21.1 ABG pH 7.44 ABG Total CO2 22.1 ABG O2 Saturation 99.9 H ABG Base Excess -2.1 L ABG Potassium 4.2 VBG pH VBG pCO2 VBG HCO3 VBG Total CO2 VBG O2 Sat (Calc) VBG Base Excess VBG Potassium Sodium 140.0 Chloride 113.0 H Glucose 155 H Lactate 2.9 H FiO2 60.0 Inspiratory BiPAP Potassium Carbon Dioxide Anion Gap BUN Creatinine Est GFR ( Amer) Est GFR (Non-Af Amer) POC Glucose (mg/dL) 174 H Random Glucose Calcium Phosphorus Magnesium Iron TIBC % Saturation Total Bilirubin AST ALT Alkaline Phosphatase Lactate Dehydrogenase Total Creatine Kinase Troponin I NT-Pro-B Natriuret Pep Total Protein Albumin Globulin Albumin/Globulin Ratio Arterial Blood Potassium 4.2 Venous Blood Potassium Urine Color Urine Appearance Urine pH Ur Specific [place] Urine Protein Urine Glucose (UA) Urine Ketones Urine Blood Urine Nitrate Urine Bilirubin Urine Urobilinogen Ur Leukocyte Esterase Urine RBC Urine WBC Ur Epithelial Cells 01/23/18 01/23/18 06:20 10:10 WBC RBC Hgb Hct MCV MCH MCHC RDW Plt Count MPV Gran % Lymph % (Auto) [place] % (Auto) Eos % (Auto) Baso % (Auto) Gran # Lymph # (Auto) [place] # (Auto) Eos # (Auto) Baso # (Auto) PT INR APTT D-Dimer, Quantitative pCO2 pO2 35 HCO3 ABG pH ABG Total CO2 ABG O2 Saturation ABG Base Excess ABG Potassium VBG pH 7.35 VBG pCO2 45.0 VBG HCO3 24.8 VBG Total CO2 26.2 VBG O2 Sat (Calc) 67.7 H VBG Base Excess -1.1 L VBG Potassium 4.4 Sodium 140 139.0 Chloride 108 H 109.0 H Glucose 135 H Lactate 3.0 H FiO2 21.0 Inspiratory BiPAP Potassium 4.9 Carbon Dioxide 22 Anion Gap 15 BUN 27 H Creatinine 1.3 H Est GFR ( Amer) 47 Est GFR (Non-Af Amer) 39 POC Glucose (mg/dL) Random Glucose 157 H Calcium 9.0 Phosphorus 3.3 Magnesium 2.2 Iron TIBC % Saturation Total Bilirubin 0.4 AST 25 ALT 26 Alkaline Phosphatase 69 Lactate Dehydrogenase Total Creatine Kinase Troponin I NT-Pro-B Natriuret Pep Total Protein 6.5 Albumin 3.3 Globulin 3.2 Albumin/Globulin Ratio 1.0 L Arterial Blood Potassium Venous Blood Potassium 4.4 Urine Color Urine Appearance Urine pH Ur Specific [place] Urine Protein Urine Glucose (UA) Urine Ketones Urine Blood Urine Nitrate Urine Bilirubin Urine Urobilinogen Ur Leukocyte Esterase Urine RBC Urine WBC Ur Epithelial Cells EKG/Cardiology Studies: Cardiology / EKG Studies 01/22/18 17:18 ELECTROCARDIOGRAM Stat Comment: Reason For Exam: sob 01/23/18 07:00 EKG [ELECTROCARDIOGRAM] Routine Comment: Reason For Exam: tachy Critical Care Progress Note - Nutrition Nutrition: Nutrition Category Date Time Status NPO Diet [DIET] Diets 01/22/18 Breakfast Ordered Assessment/Plan - Assessment and Plan (Free Text) Plan: Patient seen and examined on rounds with resident, agree with note with following additions/exceptions: Patient is 87yo female with PMHx of severe dementia, non verbal at baseline, HLD, HTN, vertigo, TIA in 2013, hiatal hernia, bed bound, DNR, presents from home with severe sepsis 2/2 PNA, and likely component of CHF/volume overload. Currently afebrile, BP stable, comfortable in NAD, doing well OFF BIPAP, mental status at baseline. On broad spectrum abx, Lactate has cleared Pt is DNR, but not DNI, palliative care consulted. Severe Sepsis PNA CHF HTN Severe Dementia Respiratory failure, resolved Recommend: - supp o2 as needed, duonebs PRN, IS, goal sat 90% - broad spectrum abx, as per ID, Merrem, Vanco, Doxy - follow up BCx, UCx, Procal, Sputum culture, Urine Legionella, Strep - DC IVF - Hold Lasix for now - elevated Ddimer, unclear etiology, obtain LE duplex - ECHO - GI ppx - DVT ppx - Monitor in MICU Critica care time 40 minutes
[2018-01-23] MEDS: cefTRIAXone 1 gm 1 GM/100 ML BAG IVPB SCH (09:28)
[2018-01-23 10:18] LABS: VENOUS BLOOD GAS BASE EXCESS -1.1 mmol/L (0.0-2.0); VENOUS BLOOD GAS PO2 35 mm/Hg (30-55); VENOUS BLOOD PH 7.35 (7.32-7.43)
--- NOTE | 2018-01-23 11:36 | CP.PCM.CON ---
History of Present Illness - History of Present Illness History of Present Illness: Palliative consult requested by Dr Macey Martinez Reason: Goals of care and advance care planning 87 year old female with history of Alzheimer's dementia, HTN , CVA who presented to ED with shortness of breath and cough of one day duration. Family denies fever, chills, nausea, vomiting, diarrhea duration. Chest x ray 01/22: Extensive infiltrates R> L , possible pneumonia and pulmonary edema. EKG: ST with PVC's, inferior infarct, age undetermined. Lab 01/22: Wbc 10.7, Hgb 11.9, Plt 353, NA 140, K 4.0, glucose 221, Mag 1.6, AST 31, ALT 25, LDH 397, TCK 30, Troponin 0.01, albumnin 3.1, lactate 8UA negative. [place] cultures pending US lower extremities 01/23: report pending PMHx: Alzheimer's dementia, HLD,delusions, vertigo,CVA, hiatal hernia, gastric polyps, bed bound Social History: Non smoker, no alcohol, or drug use. 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 Family History: Non contributory. Advance Care Planning: The patient does not have an Advanced Directive. Review of Systems: As per HPI, unable to obtain complete review as patient is altered and non verbal Past Patient History - Infectious Disease Hx of Infectious Diseases: None - Tetanus Immunizations Tetanus Immunization: Unknown - Past Social History Smoking Status: Never Smoked - CARDIAC Hx Cardiac Disorders: No Hx Hypertension: Yes Hx Pacemaker: No - PULMONARY Hx Respiratory Disorders: No - NEUROLOGICAL Hx Neurological Disorder: Yes Hx Dementia: Yes Hx Dizziness: Yes Hx Transient Ischemic Attacks (TIA): Yes (08-05-13) - HEENT Hx HEENT Problems: No - RENAL Hx Chronic Kidney Disease: No - ENDOCRINE/METABOLIC Hx Endocrine Disorders: No - HEMATOLOGICAL/ONCOLOGICAL Hx Blood Disorders: No - INTEGUMENTARY Hx Dermatological Problems: No - MUSCULOSKELETAL/RHEUMATOLOGICAL Hx Musculoskeletal Disorders: No Hx Falls: Yes Hx Unsteady Gait: Yes - GASTROINTESTINAL Hx Gastrointestinal Disorders: Yes (GASTRIC POLYPS,HIATAL HERNIA,HEMORRHOIDS) HX Swallowing Problems: Yes (08-05-13) - GENITOURINARY/GYNECOLOGICAL Hx Genitourinary Disorders: Yes (URGENCY) - PSYCHIATRIC Hx Psychophysiologic Disorder: No Hx Depression: No Hx Emotional Abuse: No Hx Physical Abuse: No Hx Substance Use: No - SURGICAL HISTORY Hx Surgeries: No - ANESTHESIA Hx Anesthesia: Yes Hx Anesthesia Reactions: No Hx Malignant Hyperthermia: No Meds Allergies/Adverse Reactions: Allergies Allergy/AdvReac Type Severity Reaction Status Date / Time No Known Allergies Allergy Verified 06/13/16 02:35 - Medications Medications: Current Medications Dextrose (Dextrose 50% Inj) 0 ml IV STAT PRN; Protocol PRN Reason: Hypoglycemia Protocol Furosemide (Lasix) 40 mg IVP DAILY [facility] Last Admin: 01/23/18 09:29 Dose: 40 mg Heparin Sodium (Porcine) (Heparin) 5,000 units SC Q8 JORJE; Protocol Last Admin: 01/23/18 07:07 Dose: Not Given Dextrose (Dextrose 5% In Water 1000 Ml) 1,000 mls @ 0 mls/hr IV .Q0M PRN; Protocol PRN Reason: Hypoglycemia Protocol Doxycycline Hyclate 100 mg/ (Sodium Chloride) 100 mls @ 100 mls/hr IVPB Q12 JORJE; Protocol Last Admin: 01/23/18 09:28 Dose: 100 mls/hr Ceftriaxone Sodium (Rocephin 1 Gram Ivpb) 1 gm in 100 mls @ 100 mls/hr IVPB DAILY JORJE; Protocol Last Admin: 01/23/18 09:28 Dose: 100 mls/hr Insulin Human Lispro (Humalog Med) 0 units SC Q6H JORJE; Protocol Last Admin: 01/23/18 02:00 Dose: Not Given Ipratropium [place] (Atrovent) 0.5 mg IH [id number] JORJE Last Admin: 01/23/18 02:27 Dose: 0.5 mg Levalbuterol HCl (Xopenex) 1.25 mg IH [id number] [facility] Last Admin: 01/23/18 02:28 Dose: 1.25 mg Methylprednisolone (Solu-Medrol) 40 mg IV Q12 JORJE Last Admin: 01/23/18 09:28 Dose: 40 mg Pantoprazole Sodium (Protonix Inj) 40 mg IVP DAILY [facility] Last Admin: 01/23/18 09:28 Dose: 40 mg Physical Exam - Constitutional Appears: No Acute Distress, Chronically Ill - Head Exam Head Exam: NORMOCEPHALIC - Eye Exam Eye Exam: Normal appearance, PERRL - ENT Exam ENT Exam: Mucous Membranes Moist - Respiratory Exam Respiratory Exam: Decreased Breath Sounds, Wheezes - Cardiovascular Exam Cardiovascular Exam: Tachycardia, +S1, +S2 - GI/Abdominal Exam GI & Abdominal Exam: Normal Bowel Sounds, Soft Additional comments: no tenderness - Exam Additional comments: carias - Extremities Exam Additional comments: no edema - Neurological Exam Neurological exam: Altered - Psychiatric Exam Additional comments: restless - Skin Skin Exam: Dry, Pallor, Warm - Additional Findings Additional findings: palliative performances scale rating 30 % Results - Vital Signs Recent Vital Signs: Last Vital Signs Temp 99.6 F 01/23/18 00:02 Pulse 86 01/23/18 04:58 Resp 25 H 01/23/18 01:54 BP 147/80 01/23/18 09:29 Pulse Ox 83 L 01/23/18 01:54 - Labs Result Diagrams: 01/23/18 06:20 01/23/18 06:20 Labs: Laboratory Results - last 24 hr 01/22/18 01/22/18 01/22/18 16:18 16:18 16:18 WBC 10.7 D RBC 5.81 Hgb 11.9 L Hct 38.0 MCV 65.4 L MCH 20.5 L MCHC 31.3 RDW 16.9 H Plt Count 353 MPV 10.0 Gran % 80.4 H Lymph % (Auto) 15.7 L Haakon % (Auto) 3.7 Eos % (Auto) 0.0 L Baso % (Auto) 0.2 Gran # 8.59 H Lymph # (Auto) 1.7 Haakon # (Auto) 0.4 Eos # (Auto) 0.0 Baso # (Auto) 0.02 PT 12.8 H INR 1.12 APTT 30.5 D-Dimer, Quantitative pCO2 pO2 34 HCO3 ABG pH ABG Total CO2 ABG O2 Saturation ABG Base Excess ABG Potassium VBG pH 7.16 L* VBG pCO2 62.0 H VBG HCO3 22.1 VBG Total CO2 24.0 VBG O2 Sat (Calc) 50.8 VBG Base Excess -7.5 L VBG Potassium 4.1 Sodium 141.0 Chloride 103.0 Glucose 236 H Lactate 8.0 H* FiO2 21.0 Inspiratory BiPAP Potassium Carbon Dioxide Anion Gap BUN Creatinine Est GFR ( Amer) Est GFR (Non-Af Amer) POC Glucose (mg/dL) Random Glucose Calcium Phosphorus Magnesium Iron TIBC % Saturation Total Bilirubin AST ALT Alkaline Phosphatase Lactate Dehydrogenase Total Creatine Kinase Troponin I NT-Pro-B Natriuret Pep Total Protein Albumin Globulin Albumin/Globulin Ratio Arterial Blood Potassium Venous Blood Potassium 4.1 Urine Color Urine Appearance Urine pH Ur Specific [place] Urine Protein Urine Glucose (UA) Urine Ketones Urine Blood Urine Nitrate Urine Bilirubin Urine Urobilinogen Ur Leukocyte Esterase Urine RBC Urine WBC Ur Epithelial Cells 01/22/18 01/22/18 01/22/18 16:18 16:30 18:21 WBC RBC Hgb Hct MCV MCH MCHC RDW Plt Count MPV Gran % Lymph % (Auto) [place] % (Auto) Eos % (Auto) Baso % (Auto) Gran # Lymph # (Auto) [place]ak[place] # (Auto) Eos # (Auto) Baso # (Auto) PT INR APTT D-Dimer, Quantitative pCO2 pO2 HCO3 ABG pH ABG Total CO2 ABG O2 Saturation ABG Base Excess ABG Potassium VBG pH VBG pCO2 VBG HCO3 VBG Total CO2 VBG O2 Sat (Calc) VBG Base Excess VBG Potassium Sodium 140 Chloride 103 Glucose Lactate FiO2 Inspiratory BiPAP Potassium 4.0 Carbon Dioxide 19 L Anion Gap 22 H BUN 17 Creatinine 1.0 Est GFR ( Amer) > 60 Est GFR (Non-Af Amer) 52 POC Glucose (mg/dL) Random Glucose 221 H Calcium 9.4 Phosphorus Magnesium 1.6 L Iron 24 L TIBC 271 % Saturation 9 L Total Bilirubin 0.6 AST 31 ALT 25 Alkaline Phosphatase 117 Lactate Dehydrogenase 397 Total Creatine Kinase 30 L Troponin I < 0.01 NT-Pro-B Natriuret Pep 378 Total Protein 7.8 Albumin 3.9 Globulin 3.8 Albumin/Globulin Ratio 1.0 L Arterial Blood Potassium Venous Blood Potassium Urine Color Yellow Urine Appearance Clear Urine pH 6.0 Ur Specific [place] 1.025 Urine Protein Trace H Urine Glucose (UA) Negative Urine Ketones Negative Urine Blood Negative Urine Nitrate Negative Urine Bilirubin Negative Urine Urobilinogen 0.2 Ur Leukocyte Esterase Negative Urine RBC Negative Urine WBC Negative Ur Epithelial Cells 0 - 2 01/22/18 01/22/18 01/22/18 19:12 21:25 21:25 WBC RBC Hgb Hct MCV MCH MCHC RDW Plt Count MPV Gran % Lymph % (Auto) [place] % (Auto) Eos % (Auto) Baso % (Auto) Gran # Lymph # (Auto) Haakon # (Auto) Eos # (Auto) Baso # (Auto) PT INR APTT D-Dimer, Quantitative 629 H pCO2 30 L pO2 329.0 H HCO3 18.2 L ABG pH 7.39 ABG Total CO2 19.1 L ABG O2 Saturation 100.2 H ABG Base Excess -5.6 L ABG Potassium 3.7 VBG pH VBG pCO2 VBG HCO3 VBG Total CO2 VBG O2 Sat (Calc) VBG Base Excess VBG Potassium Sodium 139.0 Chloride 108.0 H Glucose 179 H Lactate 5.6 H* FiO2 100.0 Inspiratory BiPAP 12 Potassium Carbon Dioxide Anion Gap BUN Creatinine Est GFR ( Amer) Est GFR (Non-Af Amer) POC Glucose (mg/dL) Random Glucose Calcium Phosphorus Magnesium Iron TIBC % Saturation Total Bilirubin AST ALT Alkaline Phosphatase Lactate Dehydrogenase Total Creatine Kinase Troponin I 0.01 NT-Pro-B Natriuret Pep Total Protein Albumin Globulin Albumin/Globulin Ratio Arterial Blood Potassium 3.7 Venous Blood Potassium Urine Color Urine Appearance Urine pH Ur Specific [place] Urine Protein Urine Glucose (UA) Urine Ketones Urine Blood Urine Nitrate Urine Bilirubin Urine Urobilinogen Ur Leukocyte Esterase Urine RBC Urine WBC Ur Epithelial Cells 01/22/18 01/22/18 01/23/18 23:07 23:52 02:40 WBC RBC Hgb Hct MCV MCH MCHC RDW Plt Count MPV Gran % Lymph % (Auto) [place] % (Auto) Eos % (Auto) Baso % (Auto) Gran # Lymph # (Auto) Haak[place] # (Auto) Eos # (Auto) Baso # (Auto) PT INR APTT D-Dimer, Quantitative pCO2 pO2 33 39 HCO3 ABG pH ABG Total CO2 ABG O2 Saturation ABG Base Excess ABG Potassium VBG pH 7.27 L 7.27 L VBG pCO2 46.0 47.0 VBG HCO3 21.1 21.6 VBG Total CO2 22.5 23.0 VBG O2 Sat (Calc) 57.6 69.8 H VBG Base Excess -5.9 L -5.4 L VBG Potassium 3.9 4.6 Sodium 139.0 140.0 Chloride 106.0 107.0 Glucose 189 H 168 H Lactate 6.8 H* 6.5 H* FiO2 21.0 21.0 Inspiratory BiPAP Potassium Carbon Dioxide Anion Gap BUN Creatinine Est GFR ( Amer) Est GFR (Non-Af Amer) POC Glucose (mg/dL) 186 H Random Glucose Calcium Phosphorus Magnesium Iron TIBC % Saturation Total Bilirubin AST ALT Alkaline Phosphatase Lactate Dehydrogenase Total Creatine Kinase Troponin I NT-Pro-B Natriuret Pep Total Protein Albumin Globulin Albumin/Globulin Ratio Arterial Blood Potassium Venous Blood Potassium 3.9 4.6 Urine Color Urine Appearance Urine pH Ur Specific [place] Urine Protein Urine Glucose (UA) Urine Ketones Urine Blood Urine Nitrate Urine Bilirubin Urine Urobilinogen Ur Leukocyte Esterase Urine RBC Urine WBC Ur Epithelial Cells 01/23/18 01/23/18 01/23/18 05:35 06:14 06:20 WBC 20.6 H D RBC 4.43 Hgb 9.2 L D Hct 28.4 L MCV 64.1 L MCH 20.8 L MCHC 32.4 RDW 16.4 H Plt Count 229 MPV 9.7 Gran % 89.3 H Lymph % (Auto) 6.4 L [place] % (Auto) 4.3 Eos % (Auto) 0.0 L Baso % (Auto) 0.0 Gran # 18.39 H Lymph # (Auto) 1.3 Haakon # (Auto) 0.9 H Eos # (Auto) 0.0 Baso # (Auto) 0.01 PT INR APTT D-Dimer, Quantitative pCO2 31 L pO2 189.0 H HCO3 21.1 ABG pH 7.44 ABG Total CO2 22.1 ABG O2 Saturation 99.9 H ABG Base Excess -2.1 L ABG Potassium 4.2 VBG pH VBG pCO2 VBG HCO3 VBG Total CO2 VBG O2 Sat (Calc) VBG Base Excess VBG Potassium Sodium 140.0 Chloride 113.0 H Glucose 155 H Lactate 2.9 H FiO2 60.0 Inspiratory BiPAP Potassium Carbon Dioxide Anion Gap BUN Creatinine Est GFR ( Amer) Est GFR (Non-Af Amer) POC Glucose (mg/dL) 174 H Random Glucose Calcium Phosphorus Magnesium Iron TIBC % Saturation Total Bilirubin AST ALT Alkaline Phosphatase Lactate Dehydrogenase Total Creatine Kinase Troponin I NT-Pro-B Natriuret Pep Total Protein Albumin Globulin Albumin/Globulin Ratio Arterial Blood Potassium 4.2 Venous Blood Potassium Urine Color Urine Appearance Urine pH Ur Specific [place] Urine Protein Urine Glucose (UA) Urine Ketones Urine Blood Urine Nitrate Urine Bilirubin Urine Urobilinogen Ur Leukocyte Esterase Urine RBC Urine WBC Ur Epithelial Cells 01/23/18 01/23/18 06:20 10:10 WBC RBC Hgb Hct MCV MCH MCHC RDW Plt Count MPV Gran % Lymph % (Auto) [place] % (Auto) Eos % (Auto) Baso % (Auto) Gran # Lymph # (Auto) [place] # (Auto) Eos # (Auto) Baso # (Auto) PT INR APTT D-Dimer, Quantitative pCO2 pO2 35 HCO3 ABG pH ABG Total CO2 ABG O2 Saturation ABG Base Excess ABG Potassium VBG pH 7.35 VBG pCO2 45.0 VBG HCO3 24.8 VBG Total CO2 26.2 VBG O2 Sat (Calc) 67.7 H VBG Base Excess -1.1 L VBG Potassium 4.4 Sodium 140 139.0 Chloride 108 H 109.0 H Glucose 135 H Lactate 3.0 H FiO2 21.0 Inspiratory BiPAP Potassium 4.9 Carbon Dioxide 22 Anion Gap 15 BUN 27 H Creatinine 1.3 H Est GFR ( Amer) 47 Est GFR (Non-Af Amer) 39 POC Glucose (mg/dL) Random Glucose 157 H Calcium 9.0 Phosphorus 3.3 Magnesium 2.2 Iron TIBC % Saturation Total Bilirubin 0.4 AST 25 ALT 26 Alkaline Phosphatase 69 Lactate Dehydrogenase Total Creatine Kinase Troponin I NT-Pro-B Natriuret Pep Total Protein 6.5 Albumin 3.3 Globulin 3.2 Albumin/Globulin Ratio 1.0 L Arterial Blood Potassium Venous Blood Potassium 4.4 Urine Color Urine Appearance Urine pH Ur Specific [place] Urine Protein Urine Glucose (UA) Urine Ketones Urine Blood Urine Nitrate Urine Bilirubin Urine Urobilinogen Ur Leukocyte Esterase Urine RBC Urine WBC Ur Epithelial Cells Assessment & Plan - Assessment and Plan (Free Text) Assessment: 87 year old female with history of dementia, CVA, HTN, vertigo and delusions who is admitted with sepsis, probable pneumonia,shortness of breath and dysphagia Patients daughter and granddaughter at beside. Family reports the patient is bed bound and needs assistance with all ADL's. The patient on pureed diet at home, daughter reports she has difficulty with thin liquids, such as water and juice. Advance care planning discussed at length, patient was DNR not DNI. Daughter felt that if intubated it would be temporary situation. Ramifications of intubation explained in detail. Questions answered. Dr. Macey Martinez also spoke with family in my presence and explained the burdens of intubation on patients with her comorbidities. Daughter decided that she does not want intubation, CPR or permanent feeding tubes. She is requesting that her mother be made DNR/DNI. She is however agreeable to all other supportive care at this time. POLST directive to be completed by family and myself prior to discharge. Time spent with family in goals of care and advance care planning, 30 minutes Plan: Goals of care and advance care planning; DNR/DNI. Sepsis:Cultures /Serology pending . On Doxycycline, ID on consult, ID on consult Shortness of breast: Atrovent, Levalbuterol, Lasix, monitor chest x ray DVT prophylaxis: SCD's; US of lower extremities report pending Dysphagia: Speech and swallow evaluation
--- NOTE | 2018-01-23 11:37 | CARD ---
APPROVED REPORT Date of service: 01/23/2018 EKG Measurement Heart [id number] <Conclusion> Sinus tachycardia Inferior infarct, age undetermined Abnormal ECG
[2018-01-23] MEDS ORDERED: Sodium Chloride 0.9% 500 ML IV STA (11:54)
[2018-01-23] MEDS: Insulin Reg-MEDIUM-Coverage SC SCH ×2 (12:29→17:40)
[2018-01-23 14:25] LABS: VENOUS BLOOD GAS PO2 42 mm/Hg (30-55)
--- NOTE | 2018-01-23 16:20 | CARD ---
APPROVED REPORT Date of service: 01/23/2018 EXAM: Two-dimensional and M-mode echocardiogram with Doppler and color Doppler. INDICATION Congestive Heart Failure 2D DIMENSIONS Left Atrium (2D)3.4 (1.6-4.0cm)IVSd1.0 (0.7-1.1cm) LVDd3.7 (3.9-5.9cm)PWd1.0 (0.7-1.1cm) LVDs2.7 (2.5-4.0cm)FS (%) 28.4 % LVEF (%)55.6 (>50%) M-Mode DIMENSIONS Aortic Root2.80 (2.2-3.7cm)Aortic Cusp Exc.1.60 (1.5-2.0cm) Aortic Valve AoV Peak Nrsmbqln518.0cm/Hue Peak GR.6mmHg Mitral Valve MV E Rtuwoxbl72.1cm/sMV A Rjrormqi335.0cm/sE/A ratio0.7 TDI Lateral E' Peak V6.82cm/sMedial E' Peak V6.73cm/sE/Lateral E'10.6 E/Medial E'10.7 Pulmonary Valve PV Peak Ndaxiekq24.1cm/sPV Peak Grad.2mmHg Tricuspid Valve TR Peak [id number]/sRAP [id number] Peak Gr.17mmHg [id number] LEFT VENTRICLE The left ventricle is normal size. There is normal left ventricular wall thickness. The left ventricular function is normal. The left ventricular ejection fraction is within the normal range. There is normal LV segmental wall motion. Transmitral Doppler flow pattern is Grade I-abnormal relaxation pattern. RIGHT VENTRICLE The right ventricle is normal size. There is normal right ventricular wall thickness. The right ventricular systolic function is normal. ATRIA The left atrium size is normal. The right atrium size is normal. AORTIC VALVE The aortic valve is mildly to moderately sclerotic. No aortic regurgitation is present. There is no aortic valvular stenosis. MITRAL VALVE The mitral valve is mildly thickened. There is no mitral valve regurgitation noted. There is no mitral valve stenosis. TRICUSPID VALVE The tricuspid valve is normal in structure. There is no tricuspid valve regurgitation noted. PULMONIC VALVE There is no pulmonic valvular regurgitation. GREAT VESSELS The aortic root is normal in size. The IVC is normal in size and collapses >50% with inspiration. PERICARDIAL EFFUSION There is no pericardial effusion. <Conclusion> The left ventricle is normal size. There is normal left ventricular wall thickness. The left ventricular function is normal. The left ventricular ejection fraction is within the normal range. There is normal LV segmental wall motion. Transmitral Doppler flow pattern is Grade I-abnormal relaxation pattern.
[2018-01-23] MEDS ORDERED: Insulin Reg-MEDIUM-Coverage SC SCH (16:30)
--- NOTE | 2018-01-23 20:07 | US ---
HISTORY: Leg pain and swelling. Evaluate for DVT PHYSICIAN(S): Jeancarlos Coreas MD. TECHNIQUE: Duplex sonography and color-flow Doppler with graded compression were used to evaluate the deep venous systems of both lower extremities. FINDINGS: The visualized deep venous systems of both lower extremities are sonographically normal and compressible. Normal wave forms and augmentation are seen. There is no sonographic evidence for deep venous thrombosis in the visualized segments of both lower extremities. IMPRESSION: No sonographic evidence for deep venous thrombosis in the visualized segments of both lower extremities.
--- NOTE | 2018-01-23 20:35 | CON ---
DATE: 01/23/2018 The patient is in the ICU 128, bed 2. CHIEF COMPLAINT: Shortness of breath times several days. HISTORY OF PRESENT ILLNESS: This is an 87-year-old female with hypertension, dementia, TIA, gastric polyps, hernia, and anemia, thalassemia, who was admitted from home. The patient has not had any recent hospitalization. The patient has been taken care of while at home by night nurse, now admitted. She is bedridden. She does not verbalize. There has been low-grade fever, shortness of breath, cough reported. No abdominal pain, diarrhea or constipation. No bright red blood per rectum. No melena. PAST MEDICAL HISTORY: Significant for hypertension, dementia, TIA, gastric polyps, hernia, thalassemia, and anemia. PAST SURGICAL HISTORY: Significant for upper and lower endoscopy. ALLERGIES: THE PATIENT HAS NO KNOWN ALLERGIES. MEDICATIONS AT HOME: Reviewed and include Protonix, Megace, aspirin, and vitamins. PHYSICAL EXAMINATION: On exam, the patient is in bed with no acute distress with a temperature of 99.6 and heart rate of 105, respiratory rate of 25, and blood pressure is 102/60, it was as low as 85/56. She is not on any pressors. Examination of HEENT is unremarkable. Neck: Supple. Lungs: Have decreased breath sounds. Heart: Normal S1, S2. Abdomen: Examination is soft, nontender. Skin is intact. LABORATORY EXAMINATION: Reveals a white count of 20,000, hemoglobin of 9, and platelets of 229. Chemistries reveal a BUN of 27; creatinine of 1.3, creatinine was 1.0 prior to this; and BNP is mildly elevated. There is trace protein in urinalysis. Microbiology is pending. Chest x-ray reveals the patient to have bilateral infiltrates, extensive. ASSESSMENT AND PLAN: This is an 87-year-old female with hypertension, dementia, transient ischemic attack, gastric polyps, hernia, and anemia who was admitted with low grade fevers, tachycardia, dyspnea, leukocytosis, infiltrate, worsening renal function, and hypotension, blood pressure is now 85, brought up with fluids, currently in the ICU. Severe sepsis with bilateral community-acquired pneumonia with acute kidney injury. We will treat the patient with ceftriaxone and doxycycline and now order blood cultures, urine culture, sputum cultures, MRSA screen, procalcitonin, and urine for Legionella antigen, and we will follow closely with you. Overall prognosis is quite poor for this patient who is bedridden from home. We will follow with you. Justice EdwardsMD
[2018-01-23] MEDS: Dextrose 5%/0.9% NS 1,000 ML IV SCH (22:09)
--- NOTE | 2018-01-23 23:29 | PN ---
DATE: 01/23/2018 SUBJECTIVE: The patient is 87-year-old, seen and examined in the bed #2 of ICU. Confused, disoriented, biting on her mittens, seems to be short of breath, rattling, secretion. PHYSICAL EXAMINATION: VITAL SIGNS: She is afebrile, pulse 91, respirations 18, blood pressure 147/80. LUNGS: Bilateral soft crackles in the upper lung region. HEART: S1 and S2 audible, tachycardiac. ABDOMEN: Soft, nontender. No rebound or guarding. NEUROLOGICAL: The patient is confused, disoriented, bilateral hands in mittens. EXTREMITIES: Bilateral legs, no edema. LABORATORY DATA: WBC is 20.6, hemoglobin 9.2, hematocrit 28.4, platelet 229. D-dimer 629. Chemistry is otherwise sodium 140, potassium 4.9, chloride 108, CO2 of 22, BUN 27, creatinine 1.3. Blood sugar of 157. ASSESSMENT: 1. Probably aspiration pneumonia. 2. Multilobar pneumonia. 3. Severe dementia. 4. Leukocytosis. PLAN: We will continue the patient on nebulizer treatment. She is on IV steroids. She is on nebulizer treatment. She is on doxycycline. She is on DVT prophylaxis by SCDs. Continue diuretic intermittently. She is on Rocephin and doxycycline. The patient's daughter by the bedside. We will keep the patient n.p.o. and she agreed for DNR and DNI. Nimco Martinez MD
[2018-01-24] MEDS: Insulin Reg-MEDIUM-Coverage SC SCH ×4 (00:45→17:28)
[2018-01-24] MEDS: Ipratropium 0.02% Inhal Soln (0.5 mg/2.5 ml) UD IH SCH ×4 (01:12→19:52)
[2018-01-24] MEDS: Levalbuterol 1.25 MG/3 ML Inhal Soln UD IH SCH ×4 (01:12→19:53)
[2018-01-24] MEDS: cefTRIAXone 1 gm 1 GM/100 ML BAG IVPB SCH (09:40)
[2018-01-24] MEDS: MethylPREDNISolone 40 mg Vial IV SCH ×2 (09:40→22:11)
--- NOTE | 2018-01-24 15:11 | PN ---
DATE: 01/24/2018 SUBJECTIVE: The patient is in bed, in no acute distress, nontoxic. No fevers and chills. PHYSICAL EXAMINATION: VITAL SIGNS: On exam, temperature is 98, blood pressure is 120/60, respiratory rate of 21. HEENT: Examination of HEENT is unremarkable. NECK: Supple. LUNGS: Have decreased breath sounds. HEART: Normal S1, S2. ABDOMEN: Soft, nontender. LABORATORY DATA: Laboratory examination reveals a white count of 20,000, hemoglobin of 9, platelets of 229. BUN of 27, creatinine of 1.3. Review of orders reveals the patient to be on doxycycline, ceftriaxone. Microbiology reveals the nasal MRSA is negative. The urine culture has no growth. Blood culture has no growth. ASSESSMENT AND PLAN: An 87-year-old female, seen earlier today. The patient had an ultrasound of the lower extremity yesterday, which was negative for deep venous thrombosis, who has a history of dementia. She is a DNR and DNI, transient ischemic attack, gastric polyps, hernia, anemia, thalassemia. Admitted from home with severe sepsis, bilateral community-acquired pneumonia with acute kidney injury, on ceftriaxone and doxycycline. Thus far, the blood cultures are negative. The methicillin-resistant Staphylococcus aureus screen is negative. Creatinine is somewhat improved. Urine and blood cultures are negative. Procalcitonin is at 39.72 even with a creatinine of 1.3. We will continue the present course. We will follow with you. Review of orders reveals the sputum culture is still pending. Justice Edwards MD
--- NOTE | 2018-01-24 17:15 | PN ---
DATE: 01/24/2018 SUBJECTIVE: Patient is 87 years old. Seen and examined. Seems to be much alert as compared to yesterday. . I gave her a sip of water, she was able to handle without choking. She still has mild shortness of breath with gurgling in upper lung region. PHYSICAL EXAMINATION GENERAL: She is more awake and alert, but not communicative. VITAL SIGNS: She is afebrile. Pulse 102, respirations 21, and blood pressure 127/65. LUNGS: Bilateral fair airflow in the lower lung regions, but has soft crackle in the upper lung region. HEART: S1, S2 audible. ABDOMEN: Soft, nontender, no rebound, no guarding. NEUROLOGIC: Patient is awake and alert, but confused and disoriented. LABORATORY DATA: Blood culture and urine cultures are negative. ASSESSMENT: 1. Multilobar pneumonia. 2. Status post respiratory insufficiency. 3. History of hypertension. 4. Dementia. PLAN: Currently, patient is on IV fluids. . We will continue doxycycline. She is on DVT prophylaxis. She is on SCD. We will monitor her blood sugar. She is currently on Rocephin. Continue IV steroids. I will follow up CBC and CMP in the a.m. Nimco Martinez MD
[2018-01-24] MEDS: Dextrose 5%/0.9% NS 1,000 ML IV SCH (18:10)
[2018-01-25] MEDS: Ipratropium 0.02% Inhal Soln (0.5 mg/2.5 ml) UD IH SCH ×4 (01:07→20:26)
[2018-01-25] MEDS: Levalbuterol 1.25 MG/3 ML Inhal Soln UD IH SCH ×4 (01:08→20:26)
[2018-01-25] MEDS: Insulin Reg-MEDIUM-Coverage SC SCH ×4 (06:24→17:00)
[2018-01-25 07:03] LABS: BASO # 0.01 K/mm3 (0.0-2.0); GRAN # 26.67 (1.4-6.5); GRAN % 93.7 % (50.0-68.0); HEMOGLOBIN 8.6 g/dL (12.0-16.0); LYMPH % 3.5 % (22.0-35.0); MEAN CELL VOLUME 63.1 fl (80.0-105.0); MEAN CORPUSCULAR HEMOGLOBIN 20.2 pg (25.0-35.0); MEAN CORPUSCULAR HGB CONC 32.1 g/dl (31.0-37.0); MEAN PLATELET VOLUME 9.9 fl (7.0-11.0); MONO # 0.8 (0.1-0.6); MONO % 2.8 % (1.0-6.0); PLATELET COUNT 274 10^3/uL (120.0-450.0); RBC 4.25 10^6/uL (3.5-6.1); RED CELL DISTRIBUTION WIDTH 16.4 % (11.5-14.5)
[2018-01-25 07:30] LABS: WHITE BLOOD COUNT 28.5 10^3/ul (4.5-11.0)
[2018-01-25 07:59] LABS: ALBUMIN 3.7 g/dL (3.0-4.8); CALCIUM 9.2 mg/dL (8.4-10.5)
[2018-01-25 08:11] LABS: BAND 1 % (0-2); LYMPHOCYTE 1 % (22.0-35.0); MONOCYTE 1 % (1.0-6.0); MYELOCYTE 1 %; NEUTROPHIL 96 % (50.0-70.0)
[2018-01-25 08:12] LABS: ANISOCYTOSIS 1+; MICROCYTOSIS 1+; PLATELET ESTIMATE NORMAL (NORMAL); TARGET CELLS SLIGHT
[2018-01-25] MEDS: MethylPREDNISolone 40 mg Vial IV SCH ×2 (09:14→21:11)
[2018-01-25] MEDS: cefTRIAXone 1 gm 1 GM/100 ML BAG IVPB SCH (09:14)
--- NOTE | 2018-01-25 13:12 | CP.PCM.PN ---
Subjective - Date & Time of Evaluation Date of Evaluation: 01/25/18 Time of Evaluation: 12:00 - Subjective Subjective: 87 year old female with history of HTN, dementia who is admitted with sepsis, pneumonia, AMS Patients daughter at bedside. POLST directive explained POLST DNR/DNI completed , a copy is placed in chart Objective - Vital Signs/Intake and Output Vital Signs (last 24 hours): Temp Pulse Resp BP Pulse Ox 98.4 F 106 H 20 150/73 94 L 01/25/18 06:00 01/25/18 06:00 01/25/18 06:00 01/25/18 09:14 01/25/18 06:00 Intake and Output: 01/25/18 01/25/18 06:59 18:59 Intake Total 740 Output Total 275 Balance 465 - Medications Medications: Current Medications Furosemide (Lasix) 20 mg IVP DAILY JORJE Doxycycline Hyclate 100 mg/ (Sodium Chloride) 100 mls @ 100 mls/hr IVPB Q12 JORJE; Protocol Last Admin: 01/25/18 09:13 Dose: 100 mls/hr Ceftriaxone Sodium (Rocephin 1 Gram Ivpb) 1 gm in 100 mls @ 100 mls/hr IVPB DAILY JORJE; Protocol Last Admin: 01/25/18 09:14 Dose: 100 mls/hr Potassium Chloride (Potassium Chloride 10 Meq/100 Ml) 10 meq in 100 mls @ 50 mls/hr IVPB Q2H JORJE Stop: 01/25/18 15:14 Last Admin: 01/25/18 12:00 Dose: 50 mls/hr Insulin Human Regular (Humulin R Med) 0 units SC Q6 JORJE; Protocol Last Admin: 01/25/18 12:02 Dose: 3 unit Ipratropium [place] (Atrovent) 0.5 mg IH [id number] JORJE Last Admin: 01/25/18 07:42 Dose: 0.5 mg Levalbuterol HCl (Xopenex) 1.25 mg IH [id number] JORJE Last Admin: 01/25/18 07:42 Dose: 1.25 mg Methylprednisolone (Solu-Medrol) 20 mg IV Q12 JORJE Pantoprazole Sodium (Protonix Inj) 40 mg IVP DAILY JORJE Last Admin: 01/25/18 09:14 Dose: 40 mg - Labs Labs: 01/25/18 06:50 01/25/18 06:50 PT 12.8 SECONDS (9.4-12.5) H 01/22/18 16:18 INR 1.12 01/22/18 16:18 APTT 30.5 Seconds (25.1-36.5) 01/22/18 16:18 Assessment and Plan - Assessment and Plan (Free Text) Assessment: 87 year old female with history of dementia, HTN who is admitted with sepsis, pneumonia, AMS. Patients daughter at bedside. POLST directive explained, questions answered. POLST DNR/DNI completed. Goals of care discussed, family intendeds to take patient home with part time receptionist hemodialysis patient care specialist once medically cleared. Time spent in goals of care and advance care planning, 30 minutes Plan: Advance care planning, POLST DNR/DNI Sepsis: Continue Doxycycline, Rocephin Dysphagia: Aspiration precautions pureed diet
--- NOTE | 2018-01-25 19:27 | PN ---
DATE: 01/25/2018 SUBJECTIVE: The patient is in bed, in no acute distress, nontoxic. PHYSICAL EXAMINATION: VITAL SIGNS: On exam, temperature is 98, blood pressure is 150/70, respiratory rate of 22, heart rate of 105. HEENT: Examination of HEENT is unremarkable. NECK: Supple. LUNGS: Have decreased breath sounds. HEART: Normal S1 and S2. ABDOMEN: Soft. LABORATORY DATA: Laboratory examination reveals the white count is 28,000, hemoglobin of 8, platelets of 274. Chemistries reveals a BUN of 41, creatinine of 1.3. Urinalysis is noted. Serology is reviewed. Microbiology reveals the urine culture is negative. Blood cultures are negative. ASSESSMENT AND PLAN: An 87-year-old female, history of dementia, transient ischemic attack, gastric polyps, hernia, anemia, thalassemia. Admitted with severe sepsis, bilateral community acquired pneumonia, acute kidney injury, on ceftriaxone and doxycycline. Dayna Richard's note is appreciated. Cultures at this point negative. Methicillin-resistant Staphylococcus aureus screen is negative. Urine and blood cultures are negative. Urine for Legionella antigen is negative. Would complete a short course of antibiotics. We will discontinue the doxycycline IV with Solu-Medrol. We will follow with you. Justice Edwards MD
--- NOTE | 2018-01-25 22:38 | PN ---
DATE: 01/25/2018 SUBJECTIVE: Patient is 87 years old, seen and examined, confused, disoriented, but lungs seem to be much better. According to nurse, she finished all her pureed foods. PHYSICAL EXAMINATION: VITAL SIGNS: She is afebrile, pulse 106, respiration 20, blood pressure 150/73. LUNGS: Bilateral fair airflow, few crackles bilaterally. HEART: S1, S2 audible. ABDOMEN: Soft, nontender. No rebound. No guarding. NEUROLOGICAL: She is confused, disoriented, but alert. LABORATORY EXAMINATION: WBC is 28.5, hemoglobin 8.6, hematocrit 26.8, platelets 274. Chemistry: Sodium 143, potassium 3.4, chloride 109, CO2 25, BUN 41, creatinine 1.3, blood sugar of 228. Leg Doppler is negative. ASSESSMENT: Status post multilobar pneumonia. PLAN: I will cut down steroids, supplement potassium, pureed food is being tolerated, continue antibiotics. We will reevaluate in a.m. Daughter wants to take her home as soon as she is stable. We will make discharge disposition plan. Nimco Martinez MD
[2018-01-26] MEDS: Levalbuterol 1.25 MG/3 ML Inhal Soln UD IH SCH ×4 (02:17→19:50)
[2018-01-26] MEDS: Ipratropium 0.02% Inhal Soln (0.5 mg/2.5 ml) UD IH SCH ×4 (02:17→19:50)
[2018-01-26] MEDS: MethylPREDNISolone 40 mg Vial IV SCH ×2 (10:05→21:55)
[2018-01-26] MEDS: cefTRIAXone 1 gm 1 GM/100 ML BAG IVPB SCH (10:05)
--- NOTE | 2018-01-26 12:25 | PN ---
DATE: 01/26/2018 SUBJECTIVE: The patient is 87 years old, seen and examined, confused, disoriented. According to nurse, eating fair. PHYSICAL EXAMINATION: VITAL SIGNS: She is afebrile, pulse 83, respirations 21, blood pressure 102/54. LUNGS: Bilateral fair airflow. A few soft crackle in the upper lung region. HEART: S1 and S2 audible. ABDOMEN: Soft. Nontender. No rebound. No guarding. NEUROLOGICAL: The patient is confused and disoriented. LABORATORY EXAM: Legionella titer is negative. Blood sugar is 182. Blood culture, urine cultures are negative. ASSESSMENT: 1. Probably aspiration pneumonia. 2. Severe dementia. 3. Hypertension. 4. Leukocytosis secondary to steroid. PLAN: We will continue the patient on nebulizer treatment, monitor blood sugar. I will discontinue her Lasix. Continue her on Protonix. She is on Risperdal 0.25 twice a day. I can continue Rocephin and Seroquel at bedtime. We will continue Solu-Medrol 20 mg twice a day over the weekend and we will switch it to p.o. prednisone tomorrow. If her lungs clear up, probably discharge plan on Sunday or Sunday. Nimco Martinez MD
[2018-01-26] MEDS: Insulin Reg-MEDIUM-Coverage SC SCH ×3 (14:13→23:58)
--- NOTE | 2018-01-26 21:58 | PN ---
DATE: 01/26/2018 SUBJECTIVE: SUBJECTIVE: The patient is in bed, in no acute distress. PHYSICAL EXAMINATION VITAL SIGNS: Temperature is 97, blood pressure is 119/70, respiratory rate of 21, heart rate of 69. HEENT: Unremarkable. NECK: Supple. LUNGS: Have decreased breath sounds. HEART: Normal S1, S2. ABDOMEN: Soft, nontender. LABORATORY DATA: Laboratory examination reveals a white count of 20,000, hemoglobin of 8, platelets of 274. Chemistries reveals a BUN of 41, creatinine of 1.3. Urinalysis is noted. Serology is noted. Microbiology reveals the blood cultures are negative. Urine cultures are negative. Nasal MRSA screen. ASSESSMENT AND PLAN: This is an 87-year-old female with history of dementia, transient ischemic attack, gastric polyps, hernia, anemia, thalassemia, admitted with a severe sepsis, bilateral community-acquired pneumonia, acute kidney injury, on ceftriaxone and doxycycline. With urine Legionella antigen negative, and the patient's white count is now up to 28,000. With a negative basic metabolic panel and elevated procalcitonin in face of a creatinine of 1.3. Procalcitonin is 39. The patient is on Solu-Medrol, which may explain the leukocytosis. We will follow closely with you. LFTs are normal. Justice Edwards MD
[2018-01-27] MEDS: Insulin Reg-MEDIUM-Coverage SC SCH ×3 (00:01→13:11)
[2018-01-27] MEDS: Levalbuterol 1.25 MG/3 ML Inhal Soln UD IH SCH ×4 (01:05→19:53)
[2018-01-27] MEDS: Ipratropium 0.02% Inhal Soln (0.5 mg/2.5 ml) UD IH SCH ×5 (01:05→19:53)
[2018-01-27] MEDS: MethylPREDNISolone 40 mg Vial IV SCH ×2 (09:15→21:30)
[2018-01-27] MEDS: cefTRIAXone 1 gm 1 GM/100 ML BAG IVPB SCH (09:16)
--- NOTE | 2018-01-27 13:50 | PN ---
DATE: 01/27/2018 FOLLOWUP NOTE SUBJECTIVE: Ms. Keenan is an 87-year-old female, admitted to the hospital with aspiration pneumonia, confusion and cough and congestion. She also has leukocytosis and anemia. Blood pressure controlled with current medication. She has a history of hypertension. PAST MEDICAL HISTORY: Severe dementia, difficulty in swallowing, hypertension, delusion, vertigo. ALLERGIES: NO KNOWN DRUG ALLERGIES. HOME MEDICATIONS: Aspirin 81 mg daily, Protonix 40 mg daily, Risperdal 0.25 mg b.i.d. 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 PERSONAL HISTORY: Nonsmoker. No history of alcohol abuse. PHYSICAL EXAMINATION: GENERAL: Confused, disoriented, not communicative. VITAL SIGNS: Vitals stable. Afebrile, temperature 97.8; heart rate 80 per minute; blood pressure 110/70. HEENT: Pallor positive. NECK: No lymphadenopathy. CHEST: Air entry present and equal, bilateral. No added sounds. CARDIOVASCULAR: S1, S2 normal. No murmur. No gallop. NEURO: Confused, disoriented, not communicative. EXTREMITIES: No leg edema. LABORATORY DATA: White count 28,000, hemoglobin 8.6, hematocrit 26, platelet 274. Glucose 226. ASSESSMENT: 1. Severe dementia. 2. Difficulty in swallowing. 3. Hypertension. 4. Probable aspiration pneumonia. 5. Leukocytosis. 6. Anemia. PLAN: She has significant leukocytosis at 28,000. The white count does not decline. She might need flow cytometry for further evaluation. Leukocytosis might be likely related to steroid use. For the past 2 days, she has leukocytosis. On admission, her white count was normal at 7. She is on IV antibiotic, ceftriaxone, continue that. Continue current medication, bronchodilators, Risperdal 0.25 mg p.o. b.i.d., Seroquel 50 mg p.o. at bedtime, Solu-Medrol 20 every 12. Iliana Austin MD
--- NOTE | 2018-01-27 19:27 | PN ---
DATE: 01/27/2018 SUBJECTIVE: The patient is in bed, in no acute distress. Seen earlier today in room 362, bed 1. No fevers and no chills. PHYSICAL EXAMINATION: VITAL SIGNS: Temperature is 98, blood pressure is 120/70, respiratory rate 16. HEENT: Unremarkable. NECK: Supple. LUNGS: Have decreased breath sounds. HEART: Normal S1, S2. ABDOMINAL: Soft, nontender. LABORATORY EXAMINATION: Reveals a white count of 28,000, hemoglobin of 8, platelets of 274. Chemistries reveals a BUN of 41, creatinine of 1.3. Urinalysis is noted. Serology is noted. Microbiology reveals the blood cultures are negative. Urine cultures are negative. Naris MRSA is negative. Review of orders reveals the patient to be on ceftriaxone and Solu-Medrol. ASSESSMENT AND PLAN: An 87-year-old female seen earlier today in 362, bed 1, history of dementia, transient ischemic attack, gastric polyps, hernia, anemia. Admitted with severe sepsis with bilateral community-acquired pneumonia, acute kidney injury, and elevated procalcitonin of 39 with a creatinine of 1.3. The patient is also on Solu-Medrol. Currently on ceftriaxone. Maybe able to switch to p.o. antibiotics and methicillin-resistant Staphylococcus aureus screen is negative. Urine cultures are negative. Blood cultures are negative. Urinalysis is negative. Last white count was 28,000 and today the patient is on ceftriaxone, day #5, also on Solu-Medrol. May discontinue the antibiotics within the next 24 hours. The patient's QTc is 440. May able to complete with p.o. Levaquin 500 mg once daily. Today is day #5 of ceftriaxone, may complete another 2 days of Levaquin to complete with 7 days of antibiotics total. Justice Edwards MD
[2018-01-28] MEDS: Insulin Reg-MEDIUM-Coverage SC SCH ×4 (00:05→17:06)
[2018-01-28] MEDS: Levalbuterol 1.25 MG/3 ML Inhal Soln UD IH SCH ×4 (01:26→19:49)
[2018-01-28] MEDS: Ipratropium 0.02% Inhal Soln (0.5 mg/2.5 ml) UD IH SCH ×4 (01:26→19:49)
[2018-01-28 06:36] LABS: BASO # 0.01 K/mm3 (0.0-2.0); BASO % 0.1 % (0.0-3.0); GRAN # 8.78 (1.4-6.5); GRAN % 85.1 % (50.0-68.0); HEMOGLOBIN 9.1 g/dL (12.0-16.0); LYMPH # 1.1 (1.2-3.4); LYMPH % 10.8 % (22.0-35.0); MEAN CELL VOLUME 64.5 fl (80.0-105.0); MEAN CORPUSCULAR HEMOGLOBIN 20.1 pg (25.0-35.0); MEAN CORPUSCULAR HGB CONC 31.2 g/dl (31.0-37.0); MEAN PLATELET VOLUME 9.8 fl (7.0-11.0); MONO # 0.4 (0.1-0.6); RBC 4.53 10^6/uL (3.5-6.1); WHITE BLOOD COUNT 10.3 10^3/ul (4.5-11.0)
[2018-01-28 06:47] LABS: ALBUMIN 3.6 g/dL (3.0-4.8); ALT/SGPT 20 U/L (7-56); AST/SGOT 24 U/L (14-36); BLOOD UREA NITROGEN 57 mg/dL (7-21); CALCIUM 9.7 mg/dL (8.4-10.5); GFR NON-AFRICAN AMERICAN 52
[2018-01-28 07:42] VITALS: RESP 20
[2018-01-28] MEDS: MethylPREDNISolone 40 mg Vial IV SCH (09:12)
[2018-01-28] MEDS: cefTRIAXone 1 gm 1 GM/100 ML BAG IVPB SCH (09:12)
--- NOTE | 2018-01-28 17:03 | PN ---
DATE: 01/28/2018 SUBJECTIVE: Patient is 87 years old, seen and examined. According to the nurse, she did not eat that well. Has no respiratory difficulty. Tolerating pureed diet. with the family. Draining clear urine. PHYSICAL EXAMINATION VITAL SIGNS: She is afebrile. Pulse 69, respirations 20, and blood pressure 149/77. LUNGS: Bilateral good airflow. No rhonchi or crackle. HEART: S1, S2 audible. ABDOMEN: Soft, nontender, no rebound, no guarding. NEUROLOGIC: Patient is awake and alert, but confused, disoriented. Not communicative. EXTREMITIES: Bilateral leg, no edema. LABORATORY EXAMINATION: WBC is 10.3, hemoglobin 9.1, hematocrit 29.2, and platelets of 291. Chemistries: Sodium 146, potassium 4.3, chloride 105, CO2 of 35. BUN 57, creatinine 1. Blood sugar 199. ASSESSMENT: 1. Aspiration pneumonia, resolving. 2. Severe dementia. 3. Mild renal insufficiency. 4. Hypertension. 5. Intermittent agitation. PLAN: We will continue on nebulizer treatment. Discontinue her IV Protonix. We will switch her steroid to p.o. We will discontinue Saez catheter and observe. We will notify the family, so they can make arrangement for home health care and possible discharge in the a.m. if the patient remains stable. Nimco Martinez MD
--- NOTE | 2018-01-28 23:44 | PN ---
DATE: 01/28/2018 SUBJECTIVE: The patient is in bed in no acute distress, nontoxic. PHYSICAL EXAMINATION VITAL SIGNS: Temperature is 97, blood pressure is 160/60, respiratory rate of 18. HEENT: Examination of HEENT is unremarkable. NECK: Supple. LUNGS: Have decreased breath sounds. HEART: Normal S1, S2. ABDOMEN: Soft, nontender. LABORATORY EXAMINATION: Reveals a white count of 10,000, hemoglobin of 9, platelets of 291. Chemistries reveal a BUN of 57, creatinine of 1.0. Urinalysis is noted. Serology is negative. Microbiology reveals the blood cultures are negative. Naris cultures are negative. ASSESSMENT AND PLAN: This is an 87-year-old female who was seen earlier today in 362 with a history of dementia, transient ischemic attack, gastric polyps, hernia, severe sepsis, bilateral community-acquired pneumonia, acute kidney injury, elevated procalcitonin and today is day #6 of antibiotics. The patient is now off antibiotics, and Dr. Martinez's note is reviewed. Now off antibiotics for possible discharge. Justice Edwards MD
[2018-01-29] MEDS: Insulin Reg-MEDIUM-Coverage SC SCH ×3 (00:21→12:26)
[2018-01-29] MEDS: Ipratropium 0.02% Inhal Soln (0.5 mg/2.5 ml) UD IH SCH ×3 (02:12→13:13)
[2018-01-29] MEDS: Levalbuterol 1.25 MG/3 ML Inhal Soln UD IH SCH ×3 (02:12→13:13)
[2018-01-29 07:57] VITALS: BP 151/66; PULSE 78; TEMP 97.3; O2SAT 98
--- NOTE | 2018-01-29 11:30 | PN ---
DATE: 01/29/2018 SUBJECTIVE: The patient is in bed, in no acute distress, nontoxic. PHYSICAL EXAMINATION: VITAL SIGNS: On exam, temperature is 97, blood pressure is 150/60, respiratory rate of 18. HEENT: Examination of HEENT is unremarkable. NECK: Supple. LUNGS: Have decreased breath sounds. HEART: Normal S1, S2. ABDOMEN: Soft. LABORATORY DATA: Laboratory examination reveals a white count of 10,000, hemoglobin of 9, platelets of 291. Chemistries reveals a BUN of 57, creatinine of 1. Serology is noted. Microbiology is reviewed. Blood cultures are negative. ASSESSMENT AND PLAN: An 87-year-old female who was seen earlier today and history of dementia, transient ischemic attack, gastric polyps, hernia with severe sepsis, bilateral community-acquired pneumonia, acute kidney injury, elevated procalcitonin. The patient had received 6 days, now off of antibiotics, afebrile. Review of orders reveals the patient is off of antibiotics, afebrile. White count is normal. The patient is at risk for developing nosocomial infections. Justice Edwards MD
--- NOTE | 2018-01-30 03:15 | DS ---
HISTORY OF PRESENT ILLNESS: The patient is 87 years old, seen and examined. She is confused and disoriented, not in any distress. PHYSICAL EXAMINATION: VITAL SIGNS: The patient is afebrile, pulse 78, respirations 20 and blood pressure 151/66. LUNGS: Bilateral fair airflow. No rhonchi or crackles. HEART: S1 and S2 audible. ABDOMEN: Soft and nontender. No rebound. No guarding. NEUROLOGIC: The patient is confused and disoriented, not communicative. EXTREMITIES: Bilateral legs, no edema. LABORATORY DATA: WBC is 10.3, hemoglobin 9, hematocrit 29 and platelet of 291. Chemistry, blood sugar is 233. ASSESSMENT: 1. Multilobar pneumonia. 2. Severe dementia. 3. Hypertension. 4. Renal insufficiency, improving. PLAN: The patient will be discharged today. She will be given Levaquin 250 daily for five more days and prednisone 20 mg daily for five more days and she will resume her medications including Risperdal, Seroquel, and I will follow up patient at her home. Nimco Martinez MD
== END 2018-01-29 15:34 | disposition home health service (06) | DRG 871 ==
LOC: ED 16:48 → ERH 20:14 → ICU 22:35 → 3RNO 01-23 22:29
PROVIDERS: ADMIT Internal Medicine; ATTEND Internal Medicine
PROC: 5A09357 Assistance with Respiratory Ventilation, Less than 24 Consecutive Hours, Continuous Positive Airway Pressure (ICD-10-PCS; principal; 2018-01-23)
DX: A41.9 Sepsis, unspecified organism (principal); J69.0 Pneumonitis due to inhalation of food and vomit; E87.2 Acidosis; N17.9 Acute kidney failure, unspecified; I10 Essential (primary) hypertension; R65.20 Severe sepsis without septic shock; G30.9 Alzheimer's disease, unspecified; F02.80 Dementia in other diseases classified elsewhere, unspecified severity, without behavioral disturbance, psychotic disturbance, mood disturbance, and anxiety; R13.10 Dysphagia, unspecified; R09.02 Hypoxemia; R41.82 Altered mental status, unspecified; D56.9 Thalassemia, unspecified; D72.829 Elevated white blood cell count, unspecified; T38.0X5A Adverse effect of glucocorticoids and synthetic analogues, initial encounter; E78.5 Hyperlipidemia, unspecified; K29.70 Gastritis, unspecified, without bleeding; I49.3 Ventricular premature depolarization; Z66 Do not resuscitate; K31.7 Polyp of stomach and duodenum; Z86.73 Personal history of transient ischemic attack (TIA), and cerebral infarction without residual deficits; Z79.82 Long term (current) use of aspirin; Z74.01 Bed confinement status